=== PATIENT | male | born 1950 | race Caucasian/White ===

== ENCOUNTER 2019-02-06 10:12 | Inpatient (IN) ==
--- NOTE | 2019-02-06 10:22 | Emergency Department Note ---
Disposition Clinical Impression: Complete heart block by electrocardiogram, Elevated troponin, Elevated brain natriuretic peptide (BNP) level Disposition: Admitted As Inpatient Condition: Fair [facility]errals: [facility] [Primary Care Provider[facility] - Forms: ED Satisfaction Letter Time of Disposition: 12:43 General Adult HPI - General Stated complaint: chest pain Time Seen by Provider: 02/06/19 10:18 Source: patient, EMS Mode of arrival: EMS Limitations: no limitations Nursing Notes Reviewed: Yes Vital Signs Reviewed: Yes - History of Present Illness HPI Narrative: Patient is a 68-year-old male presenting via EMS from transferred for the [facility] for shortness of breath. Patient with history of congestive heart failure, AR in the past without intervention, schizophrenia, anxiety Per EMS, patient had presented to the [facility] with 2 months of shortness of breath, lightheaded and dizziness. Patient confirms this account. Per EMS, when they arrived they found the patient was bradycardic with a heart rate of 37 bpm and to be in complete heart block. Prior to their arrival, the patient was given sublingual nitroglycerin for reported elevated blood pressure. Per patient, he has no chest pain, continues with shortness of breath which is mainly exertional. This is not worsened over the past 24 hours. He does not wear oxygen at home. Patient does state that last night he had pain in his right shoulder blade, which she describes as a tightness. This resolved on its own, it was nonexertional, went away with rest. He has not had this today. He does take aspirin at home. He was given aspirin today at the [facility]. No recent fall, injury, abdominal pain, nausea or vomiting. Patient denies any history of complete heart block or pacemaker placement in the past. He currently follows with a upholstered goods crafter at [facility]. Last echocardiogram was approximately one year ago per patient with a moderate reduction of ejection fraction. He denies any recent overdose of calcium channel or beta marcial. He does take carvedilol. - Related Data Allergies Allergy/AdvReac Type Severity Reaction Status Date / Time lorazepam AdvReac See Verified 02/06/19 10:23 Comments All systems ED: reviewed and negative except as stated. Review of Systems: As Per HPI Constitutional: Denies: fever, chills ENT ED: Denies: congestion Cardiovascular: Reports: chest pain, dyspnea on exertion, edema. Denies: palpitations, orthopnea, syncope Respiratory: Reports: dyspnea. Denies: cough, wheezes, hemoptysis, sputum production Gastrointestinal: Denies: abdominal pain, nausea, vomiting Genitourinary: Denies: urgency Musculoskeletal: Denies: back pain Integumentary: Denies: rash Neurological: Denies: headache, weakness, numbness, confusion Endocrine: Denies: fatigue Hematological/Lymphatic: Denies: easy bleeding Past Medical History - Past Medical History Attestation: Yes The following information was validated with the patient. Source: patient Physical Exam - General Limitations: no limitations General appearance: alert, in no apparent distress - Head Head exam: atraumatic, normocephalic, normal inspection - Eye Eye exam: Present: normal appearance, PERRL, EOMI - ENT ENT exam: normal exam - Neck Neck exam: Present: normal inspection, full ROM, trachea midline - Chest Chest inspection: Present: normal inspection, symmetric chest wall rise - Respiratory Respiratory exam: Present: normal lung sounds bilaterally. Absent: respiratory distress, wheezes - Cardiovascular Cardiovascular exam: Present: normal rhythm, bradycardia - Abdominal Exam Abdominal exam: Present: soft, Non-Tender. Absent: tenderness, distention, guarding, rebound, rigidity - Extremities Exam Extremities exam: Present: normal capillary refill, pedal edema (2+ BL LE edema) - Expanded Lower Extremity Exam Neurovascular/Tendon exam: Absent: motor deficit, sensory deficit, tendon deficit - Neurological Exam Neurological exam: Present: alert, oriented X3 - Psychiatric Psychiatric exam: Present: normal affect, normal mood - Skin Skin exam: Present: warm, dry, intact, normal color. Absent: rash, diaphoresis, pallor Course - Consultations Consultation #1: I spoke with Dr. Nuñez, with interventional cardiology following EKG showed complete heart block, patient is currently stable, patient will be admitted with cardiology consult. Dr. Nuñez recommended dopamine and atropine to be at bedside, Pads remain placed. States at this time, as patient is currently stable, most likely pacemaker placement tomorrow a.m. If patient becomes unstable, requested the patient be started on dopamine at a rate of 10 mcg/kg/min or atropine 0.5mg and Dr. Nuñez to be called immediately. Time: 10:30 Consultation #2: I did discuss the findings and elevated troponin with Dr. Nuñez, he states continued admission to the ICU, with cardio consult, he does recommend a heparin drip. Time: 11:45 Vital Signs Temperature 97.6 F 02/06/19 10:19 Pulse Rate 43 02/06/19 10:19 Respiratory Rate 18 02/06/19 10:19 Blood Pressure 215/69 02/06/19 10:19 O2 Sat by Pulse Oximetry 95 02/06/19 10:19 Temperature 97.6 F 02/06/19 10:19 Pulse Rate 39 02/06/19 11:18 Respiratory Rate 20 02/06/19 11:18 Blood Pressure 189/56 02/06/19 11:18 O2 Sat by Pulse Oximetry 94 02/06/19 11:18 Oxygen Delivery Oxygen Delivery Nasal Cannula Medical Decision Making - MDM Narrative Medical decision making narrative: Patient is a 68-year-old male who was sent via EMS from the [facility] for abnormal EKG. In route patient was found to be in complete heart block, on arrival patient conversant, stable, blood pressure is 180/90 heart rate is currently 37 and showing to be in complete heart block on EKG. Immediately the pads were placed, as patient has remained stable and conversant, normotensive, patient was not performed. Patient has remained with pads placed in the event of acute change. I did speak with cardiology, Dr. Nuñez, who recommends the patient to have dopamine and atropine placed at bedside and the case of acute change, otherwise will be admitted to ICU, pacemaker will be placed tomorrow morning. Laboratory work will be performed, including CBC, BMP, PT, PTT, troponin, BNP, chest x-ray. He was started on maintenance fluids at 75 mL per hour, with history of CHF, we will continue lightly with fluids. Chest x-ray shows mild pulmonary edema without sign of pneumonia or consolidation, entry work was obtained that was performed at the [facility] which shows troponin at 0.101, BMP otherwise unremarkable, CBC within normal limits. Laboratory obtained at our hospital was performed as well, CBC, PT, PTT and BMP are all within normal limits. Troponin was elevated at 0.08. While here in the ER, patient did have 4-5 beats of nonsustained V. tach, patient remained asymptomatic. I did discuss the findings and elevated troponin with Dr. Nuñez, he states continued admission to the ICU, further recommendation is to start a heparin drip. This will be initiated. At this time dopamine and atropine are at bedside if needed. Pads are continued to be placed on the patient. Patient has remained stable. Patient is full code. ICU was paged at 1147 for admission. I spoke with Dr. Galindo at 1236, states that he admitting hospitalist will need to admit the patient at this point. I spoke with Dr. Tran at 1240, patient has been admitted and will be placed in ICU. I did discuss Dr. Nuñez's recommendations with him. - Medical Records Medical records reviewed: Yes I reviewed the patient's medical records. - Lab Data Lab results reviewed: Yes I reviewed the patient's lab results. Result diagrams: 02/06/19 10:46 02/06/19 10:46 Lab Results 02/06/19 02/06/19 02/06/19 Range/Units 10:46 10:46 10:46 WBC 7.9 (4.3-11.1) K/mcL RBC 4.49 (4.19-5.50) M/mcL Hgb 12.9 (12.9-16.9) g/dL Hct 39.8 (37.5-50.1) % MCV 88.6 (83.0-100.0) fL MCH 28.7 (28.0-33.3) pg MCHC 32.4 (31.6-35.5) g/dL RDW 14.1 (11.5-14.5) % Plt Count 156 (140-400) K/mcL MPV 11.5 (9.4-12.4) fL Immature Gran % 0.3 (0-4) % Seg Neutrophils % 62.3 % Lymphocytes % 26.2 % Monocytes % 9.0 % Eosinophils % 1.9 % Basophils % 0.3 % Neutrophils # 4.9 (1.6-8.9) K/mcL Lymphocytes # 2.1 (0.6-4.6) K/mcL Monocytes # 0.7 (0.0-1.3) K/mcL Eosinophils # 0.2 (0.0-0.6) K/mcL Basophils # 0.0 (0.0-0.2) K/mcL PT 12.3 H (9.4-12.1) Seconds INR 1.1 APTT 28.9 (26.0-36.0) Seconds Sodium 141 (136-145) mEq/L Potassium 3.6 (3.5-5.1) mEq/L Chloride 105 (98-107) mEq/L Carbon Dioxide 24 (23-29) mEq/L BUN 21 (8-23) mg/dL Creatinine 1.09 (0.70-1.30) mg/dL Est GFR ( Amer) > 60 (> 60) Est GFR (Non-Af Amer) > 60 (> 60) BUN/Creatinine Ratio 19 (6-26) Glucose 118 H (70-105) mg/dL Calculated Osmolality 296 (280-300) Calcium 9.0 (8.6-10.3) mg/dL Troponin I 0.08 H* (< 0.04) ng/mL B-Natriuretic Peptide (Less than 100) pg/mL TSH 2.889 (0.340-5.600) mcIU/mL 02/06/19 Range/Units 10:46 WBC (4.3-11.1) K/mcL RBC (4.19-5.50) M/mcL Hgb (12.9-16.9) g/dL Hct (37.5-50.1) % MCV (83.0-100.0) fL MCH (28.0-33.3) pg MCHC (31.6-35.5) g/dL RDW (11.5-14.5) % Plt Count (140-400) K/mcL MPV (9.4-12.4) fL Immature Gran % (0-4) % Seg Neutrophils % % Lymphocytes % % Monocytes % % Eosinophils % % Basophils % % Neutrophils # (1.6-8.9) K/mcL Lymphocytes # (0.6-4.6) K/mcL Monocytes # (0.0-1.3) K/mcL Eosinophils # (0.0-0.6) K/mcL Basophils # (0.0-0.2) K/mcL PT (9.4-12.1) Seconds INR APTT (26.0-36.0) Seconds Sodium (136-145) mEq/L Potassium (3.5-5.1) mEq/L Chloride (98-107) mEq/L Carbon Dioxide (23-29) mEq/L BUN (8-23) mg/dL Creatinine (0.70-1.30) mg/dL Est GFR ( Amer) (> 60) Est GFR (Non-Af Amer) (> 60) BUN/Creatinine Ratio (6-26) Glucose (70-105) mg/dL Calculated Osmolality (280-300) Calcium (8.6-10.3) mg/dL Troponin I (< 0.04) ng/mL B-Natriuretic Peptide 1017 H (Less than 100) pg/mL TSH (0.340-5.600) mcIU/mL - Radiology Data Radiology results reviewed: Yes I reviewed the patient's radiology results. Chest X-Ray 02/06/19 10:18 IMPRESSION: The combination of cardiomegaly and mild interstitial pulmonary edema is suggestive of mild CHF. D/ / 02/06/2019 10:57:55 Jose L Payne MD / [facility] [place] Interpreting Provider: Jose L Payne MD - EKG Data EKG #1 EKG attestation: Yes I reviewed and interpreted this EKG. EKG results narrative: EKG obtained at 1070 with ventricular rate of 38, shows complete AV block with w karina QRS with a left bundle, no acute ischemic changes are noted. Rhythm strip analyzed at 1128 with nonsustained V. tach noted 5 beats, with continued complete heart block
[2019-02-06] MEDS ORDERED: 0.9 % Sodium Chloride 1,000 ML IVC SCH (10:45)
--- NOTE | 2019-02-06 10:54 | Emergency Department Note ---
Disposition Clinical Impression: Complete heart block by electrocardiogram, Elevated troponin, Elevated brain natriuretic peptide (BNP) level Disposition: Admitted As Inpatient Condition: Fair Time of Disposition: 12:43 General Adult HPI - General Chief complaint: ED Chest Pain Stated complaint: chest pain Time Seen by Provider: 02/06/19 10:18 Source: patient, EMS Limitations: no limitations - History of Present Illness Pain Scale: 0 - Related Data Home Medications Medication Instructions Recorded Confirmed Aspirin [Lo-Dose Aspirin EC] 81 mg PO DAILY 02/06/19 02/06/19 Ibuprofen [Ibu] 600 mg PO Q6H PRN 02/06/19 02/06/19 Lisinopril [Zestril] 20 mg PO DAILY 02/06/19 02/06/19 Allergies Allergy/AdvReac Type Severity Reaction Status Date / Time lorazepam AdvReac See Verified 02/06/19 10:23 Comments Past Medical History - Past Medical History Medical history: Reports: CHF, COPD, hyperlipidemia, hypertension Psychiatric history: Reports: schizophrenia - Social History Smoking Status: Never smoker Smokeless Tobacco Status: No Alcohol use: Reports: none Drug use: Reports: none Physical Exam - General Limitations: no limitations General appearance: alert Course Vital Signs Temperature 97.6 F 02/06/19 10:19 Pulse Rate 43 02/06/19 10:19 Respiratory Rate 18 02/06/19 10:19 Blood Pressure 215/69 02/06/19 10:19 O2 Sat by Pulse Oximetry 95 02/06/19 10:19 Temperature 97.9 F 02/06/19 21:03 Pulse Rate 70 02/06/19 22:00 Respiratory Rate 20 02/06/19 22:00 Blood Pressure 163/64 02/06/19 22:00 O2 Sat by Pulse Oximetry 93 02/06/19 22:00 Oxygen Delivery Oxygen Delivery Room Air Medical Decision Making - Lab Data Result diagrams: 02/06/19 10:46 02/06/19 10:46 Lab Results 02/06/19 02/06/19 02/06/19 Range/Units 10:46 10:46 10:46 WBC 7.9 (4.3-11.1) K/mcL RBC 4.49 (4.19-5.50) M/mcL Hgb 12.9 (12.9-16.9) g/dL Hct 39.8 (37.5-50.1) % MCV 88.6 (83.0-100.0) fL MCH 28.7 (28.0-33.3) pg MCHC 32.4 (31.6-35.5) g/dL RDW 14.1 (11.5-14.5) % Plt Count 156 (140-400) K/mcL MPV 11.5 (9.4-12.4) fL Immature Gran % 0.3 (0-4) % Seg Neutrophils % 62.3 % Lymphocytes % 26.2 % Monocytes % 9.0 % Eosinophils % 1.9 % Basophils % 0.3 % Neutrophils # 4.9 (1.6-8.9) K/mcL Lymphocytes # 2.1 (0.6-4.6) K/mcL Monocytes # 0.7 (0.0-1.3) K/mcL Eosinophils # 0.2 (0.0-0.6) K/mcL Basophils # 0.0 (0.0-0.2) K/mcL PT 12.3 H (9.4-12.1) Seconds INR 1.1 APTT 28.9 (26.0-36.0) Seconds Heparin Anti-Xa, Unfract (0.30-0.70) IU/mL Sodium 141 (136-145) mEq/L Potassium 3.6 (3.5-5.1) mEq/L Chloride 105 (98-107) mEq/L Carbon Dioxide 24 (23-29) mEq/L BUN 21 (8-23) mg/dL Creatinine 1.09 (0.70-1.30) mg/dL Est GFR ( Amer) > 60 (> 60) Est GFR (Non-Af Amer) > 60 (> 60) BUN/Creatinine Ratio 19 (6-26) Glucose 118 H (70-105) mg/dL Calculated Osmolality 296 (280-300) Calcium 9.0 (8.6-10.3) mg/dL Troponin I 0.08 H* (< 0.04) ng/mL B-Natriuretic Peptide (Less than 100) pg/mL TSH 2.889 (0.340-5.600) mcIU/mL 02/06/19 02/06/19 Range/Units 10:46 12:25 WBC (4.3-11.1) K/mcL RBC (4.19-5.50) M/mcL Hgb (12.9-16.9) g/dL Hct (37.5-50.1) % MCV (83.0-100.0) fL MCH (28.0-33.3) pg MCHC (31.6-35.5) g/dL RDW (11.5-14.5) % Plt Count (140-400) K/mcL MPV (9.4-12.4) fL Immature Gran % (0-4) % Seg Neutrophils % % Lymphocytes % % Monocytes % % Eosinophils % % Basophils % % Neutrophils # (1.6-8.9) K/mcL Lymphocytes # (0.6-4.6) K/mcL Monocytes # (0.0-1.3) K/mcL Eosinophils # (0.0-0.6) K/mcL Basophils # (0.0-0.2) K/mcL PT 11.7 (9.4-12.1) Seconds INR 1.0 APTT (26.0-36.0) Seconds Heparin Anti-Xa, Unfract 0.01 L (0.30-0.70) IU/mL Sodium (136-145) mEq/L Potassium (3.5-5.1) mEq/L Chloride (98-107) mEq/L Carbon Dioxide (23-29) mEq/L BUN (8-23) mg/dL Creatinine (0.70-1.30) mg/dL Est GFR ( Amer) (> 60) Est GFR (Non-Af Amer) (> 60) BUN/Creatinine Ratio (6-26) Glucose (70-105) mg/dL Calculated Osmolality (280-300) Calcium (8.6-10.3) mg/dL Troponin I (< 0.04) ng/mL B-Natriuretic Peptide 1017 H (Less than 100) pg/mL TSH (0.340-5.600) mcIU/mL Attestation Statement - Attestation Attestation: I examined this patient and my medical decision-making was reviewed with the Resident Physician. I agree with the documented findings, disposition and treatment plan as described except to the extent set forth below. Patient is 68-year-old gentleman who presents to the emergency department with chief complaint of bradycardia. Patient was seen at the [place] and transferred to our facility after he was found to be bradycardic with a heart rate in the 30s. The patient was found to have an EKG consistent with a third-degree heart block and the patient was transferred to our facility for further definitive care Physical exam patient is awake alert and in no acute distress patient is bradycardic but is asymptomatic with bradycardia Medical decision management case was discussed with cardiology who recommended having atropine and dopamine at bedside if the patient were to become unstable. The patient will be admitted to the hospitalist service electro lites will be checked on the patient and currently the patient is hemodynamically stable. If he were to become unstable the patient will be started on transcutaneous pacing as a bridge to transvenous pacing I personally supervised and was present for the mcelroy/critical portions of the following procedures completed by the resident:EKG.
[2019-02-06 10:55] LABS: Basophils % 0.3 %; Eosinophils # 0.2 K/mcL (0.0-0.6); Eosinophils % 1.9 %; Hematocrit 39.8 % (37.5-50.1); Hemoglobin 12.9 g/dL (12.9-16.9); Immature Granulocytes % 0.3 % (0-4); Lymphocytes # 2.1 K/mcL (0.6-4.6); Lymphocytes % 26.2 %; Mean Corpuscular HGB Conc 32.4 g/dL (31.6-35.5); Mean Corpuscular Hemoglobin 28.7 pg (28.0-33.3); Mean Corpuscular Volume 88.6 fL (83.0-100.0); Mean Platelet Volume 11.5 fL (9.4-12.4); Monocytes # 0.7 K/mcL (0.0-1.3); Neutrophils # 4.9 K/mcL (1.6-8.9); Platelet Count 156 K/mcL (140-400); Red Blood Count 4.49 M/mcL (4.19-5.50); Red Cell Distribution Width 14.1 % (11.5-14.5); Segmented Neutrophils % 62.3 %; White Blood Count 7.9 K/mcL (4.3-11.1)
[2019-02-06 11:02] LABS: INR 1.1; Prothrombin Time 12.3 Seconds (9.4-12.1)
[2019-02-06 11:05] LABS: Activated Partial Thrombo Time 28.9 Seconds (26.0-36.0)
[2019-02-06 11:17] LABS: BUN/Creatinine Ratio 19 (6-26); Blood Urea Nitrogen 21 mg/dL (8-23); Carbon Dioxide 24 mEq/L (23-29); Chloride 105 mEq/L (98-107); Glucose 118 mg/dL (70-105); Osmolality,Calculated 296 (280-300); Potassium 3.6 mEq/L (3.5-5.1); Sodium 141 mEq/L (136-145); eGFR For African Americans > 60 (> 60); eGFR For Non-African Americans > 60 (> 60)
[2019-02-06 11:19] LABS: Troponin I 0.08 ng/mL (< 0.04)
[2019-02-06] MEDS ORDERED: *HR* Atropine Sulfate 1 MG/10 ML SYRINGE IVP ONE (11:19)
[2019-02-06 11:31] LABS: Thyroid Stimulating Hormone 2.889 mcIU/mL (0.340-5.600)
[2019-02-06] MEDS ORDERED: *HR* Heparin 5,000 UNIT/ML VIAL IVP ONE (11:46)
[2019-02-06] MEDS ORDERED: *HR* Heparin 5,000 UNIT/ML VIAL IVP PRN ×2 (11:46)
[2019-02-06] MEDS ORDERED: Heparin 25,000 UNIT/250 ML D5W 25,000 UNIT/250 ML IV.SOLN IVC SCH (12:00)
[2019-02-06 13:04] LABS: Heparin anti-factor XA UFH 0.01 IU/mL (0.30-0.70); Prothrombin Time 11.7 Seconds (9.4-12.1)
--- NOTE | 2019-02-06 13:20 | Internal Med History&Physical ---
Date of Encounter: 02/06/19 Time of Encounter: 12:00 Internal Medicine - H&P: HPI History of present illness: Mr. Gunter is a 68 year old male who presented from [place] urgent care for shortness of breath and cardiac workup. He has a history of HFrEF, [place] two years ago, schizophrenia, and hypertension. He is poorly compliant with medications. He started having onset of shortness of breath for two months with lightheadedness that has progressed to shortness of breath. In the last few days, dyspnea has worsened and last night he experienced an episode of sharp chest pain. He again had the same issues today and so came in. He is prescribed several medications through the [place] but he only takes lisinopril, and sometimes takes aspirin. He is prescribed Coreg but he does not take it. He admits to worsening lower extremity edema and orthopnea. Admits to diaphoresis. He denies fevers/chills, n/v, diarrhea, palpitations. Patient was transferred here from [place] urgent care for further workup after some EKG changes. EMS arrived and found patient was bradycardi with HR 37 bpm and EKG showing complete heart block. Patient took two doses of sublingual nitro and chest pain improved. On arrival to [facility] ED, patient telemetry and EKG confirms complete heart block. Troponin was elevated at 0.08, with BNP 1,017. A chest x-ray was showing mild interstitial edema. Patient is conversationally dyspneic. Past Med Surg Social Fam HX - Past Medical History Medical history: CHF, COPD, hyperlipidemia, hypertension Psychiatric history: schizophrenia - Social History Smoking Status: Never smoker Smokeless Tobacco Status: No Alcohol use: none Drug use: none Internal Medicine - H&P: Meds Aspirin [Lo-Dose Aspirin EC] 81 mg PO DAILY 02/06/19 [History] Ibuprofen [Ibu] 600 mg PO Q6H PRN 02/06/19 [History] Lisinopril [Zestril] 20 mg PO DAILY 02/06/19 [History] Allergy/AdvReac Type Severity Reaction Status Date / Time lorazepam AdvReac See Verified 02/06/19 10:23 Comments All Systems PM: A 10-system review of systems was performed and is negative for pertinent findings except as documented above in the HPI. - Constitutional Constitutional: no chills, no fever(s), no night sweats - EENT Eyes: no change in vision, no discharge, no pain, no photophobia Ears: no ear discharge, no ear pain, no tinnitus Nose, mouth and throat: no dysphagia, no nasal discharge, no neck pain, no sore throat - Cardiovascular Cardiovascular ROS IM: chest pain, dyspnea, lightheadedness, no diaphoresis, no palpitations, no syncope - Respiratory Respiratory: dyspnea, no cough, no wheezing, no excessive phlegm production - Gastrointestinal Gastrointestinal: no abdominal pain, no diarrhea, no hematemesis, no hematochezia, no melena, no nausea, no vomiting - Musculoskeletal Musculoskeletal ROS IM: no numbness, no tingling - Integumentary Integumentary IM: no rash, no unusual bruising - Neurological Neurological ROS: no confusion, no convulsions, no focal weakness, no numbness, no tingling, no tremor(s) - Hematologic/Lymphatic Hematologic/Lymphatic: no easy bruising - Constitutional Vitals: Temp Pulse Resp BP Pulse Ox 97.6 F 39 20 189/56 94 02/06/19 10:19 02/06/19 11:18 02/06/19 11:18 02/06/19 11:18 02/06/19 11:18 General appearance: Present: mild distress, A&O X 3, obese Exam: conversationally dyspneic, - Head Head exam: Present: atraumatic, normocephalic - Eye Eye exam: Present: PERRL, conjuntiva pink, sclera anicteric Pupils: Present: PERRL - Neck Neck exam general surgery: Present: supple, trachea midline. Absent: lymphadenopathy - Respiratory Respiratory exam: Present: decreased breath sounds. Absent: accessory muscle use, rales, rhonchi, wheezes Additional comments: Breath sounds difficult to appreciate due to patient body habitus. - Cardiovascular Cardiovascular exam: Present: bradycardia, +S1, +S2. Absent: diastolic murmur, gallop, rubs, systolic murmur - GI/Abdominal GI/Abdominal exam: Present: normal bowel sounds, soft, no peritoneal signs. Absent: distended, tenderness - Extremities Exam Extremities exam: Present: pedal edema (bilateral, pitting), warm, radial pulses palpable and symmetrical. Absent: calf tenderness, cyanotic - Neurological Exam Neurological exam: Present: CN II-XII intact, oriented X3, no focal deficits. Absent: pronater drift, facial droop, speech deficit - Skin Skin exam: Present: dry, intact Internal Med - H&P Results - Labs CBC & Chem 7: 02/06/19 10:46 02/06/19 10:46 Labs: Short CBC 02/06/19 Range/Units 10:46 WBC 7.9 (4.3-11.1) K/mcL Hgb 12.9 (12.9-16.9) g/dL Hct 39.8 (37.5-50.1) % Plt Count 156 (140-400) K/mcL Neutrophils # 4.9 (1.6-8.9) K/mcL BMP 02/06/19 10:46 Sodium 141 Potassium 3.6 Chloride 105 Carbon Dioxide 24 BUN 21 Creatinine 1.09 Glucose 118 H Calcium 9.0 Cardiac Enzymes 02/06/19 Range/Units 10:46 Troponin I 0.08 H* (< 0.04) ng/mL - Impressions ITS Impressions Chest X-Ray 02/06/19 10:18 IMPRESSION: The combination of cardiomegaly and mild interstitial pulmonary edema is suggestive of mild CHF. D/ / 02/06/2019 10:57:55 Jose L Payne MD / [facility] Interpreting Provider: Jose L Payne MD - Assessment and Plan (1) Complete heart block by electrocardiogram Current Visit: Yes Status: Acute Assessment and plan: Cardiology was notified in ED and will be managing patient heart block. Per ED sign out, if patient becomes unstable, plan is for dopamine drip or atropine. (2) Elevated troponin Current Visit: Yes Status: Acute Assessment and plan: Troponin at [place] urgent care was 0.1, here is 0.08, shows a slight improvement. Currently on heparin drip. Cycle troponin, echocardiogram, Cardiology consultation. (3) Congestive heart failure Current Visit: Yes Status: Acute Assessment and plan: Reviewing [place] records, patient has history of systolic heart failure. He is supposed to be on Coreg and lisinopril. He only takes lisinopril but not regu larly. He is currently fluid overloaded on exam. DC IV fluids and give dose of IV Lasix 40 mg. Fluid restrict, monitor I/Os. Qualifiers: Heart failure type: systolic Heart failure chronicity: acute on chronic Qualified Code(s): I50.23 - Acute on chronic systolic (congestive) heart failure (4) Schizophrenia Current Visit: Yes Status: Acute Assessment and plan: No home medications for schizophrenia listed currently. Qualifiers: Schizophrenia type: unspecified Qualified Code(s): F20.9 - Schizophrenia, unspecified (5) Hypertension Current Visit: Yes Status: Acute Assessment and plan: Non-compliant with home medications. Resume lisinopril PO. Will be cautious to not abruptly drop BP as he likely has chronic elevated BP. IV Hydralazine prn. Qualifiers: Hypertension type: essential hypertension Qualified Code(s): I10 - Essential (primary) hypertension (6) DVT prophylaxis Current Visit: Yes Status: Acute Assessment and plan: on heparin drip - Time Spent With Patient Total time spent is greater than 50% in coordination of care (as documented) at patient's floor/unit and/or counseling patient:
--- NOTE | 2019-02-06 14:14 | Cardiology Consult Note ---
Date of Encounter: 02/06/19 Time of Encounter: 14:10 Assessment and Plan (1) Complete heart block by electrocardiogram Current Visit: Yes Status: Acute Per Cardiology: Second-degree type II heart block noted on portable telemetry box on patient prior to transport to ICU from ER. Attempting to locate ECG. Clinically stable, mentating. At first evaluation patient was anxious and short of breath, however was fidgeting through his home clothing and not wearing oxygen. Clinically improved once calmed down and re-established oxygen. Patches on. Not requiring dopamine drip at this time. Will check echo. Medications reviewed with pharmacy, does not appear to be on any medications to contribute to heart block-- supposed to be taking Coreg 6.25 mg by mouth twice a day, however has not been filled in quite some time. He confirmed not taking.. We will consider EP consult tomorrow to evaluate potential need for permanent pacemaker if clinically appropriate. TSH and electrolytes stable. Discussed and reviewed with Dr. Tobin. (2) Congestive heart failure Current Visit: Yes Status: Acute Per Cardiology: Possible history of cardiomyopathy-- no previous cardiac testing records noted at [facility]. Denies previous stenting or bypass surgery. Reports evaluated at one time for ICD, but apparently was told only needs medications. Supposed be taking Coreg 6.25 mg by mouth twice a day per pharmacy, however not an active filled prescription recently. On ACEI. Recommend diuresis. Consider nebulizer as well. Strict I&O, daily weights, fluid restriction. Qualifiers: Heart failure type: systolic Heart failure chronicity: acute on chronic Qualified Code(s): I50.23 - Acute on chronic systolic (congestive) heart failure (3) Elevated troponin Current Visit: Yes Status: Acute Per Cardiology: Currently chest pain-free. Troponin noted to be 0.08 in setting of heart block and CHF. Cycle troponins. Check echo. Suspect type II demand ischemia, no cardiac rehabilitation warranted at this time. Discussion w patient/family: The assessment and plan as outlined above was discussed with the patient and/or family members who expressed understanding and agreement. All questions were answered. Thank you for involving us in the care of your patient. Please call with any questions. History of Present Illness Consult date: 02/06/19 Consult reason: Heart Block Chief complaint: SOB History of present illness: Mr. Gunter is a 68 year old male with a relevant past mental history of HTN, HLD, COPD, possible cardiomyopathy, schizophrenia. Cardiology consult for concerns of complete heart block. Past Med Surg Social Fam HX - Past Medical History Attestation: Yes The following information was validated with the patient. Source: patient, old records reviewed, obtained from family Medical history: CHF, COPD, hyperlipidemia, hypertension Psychiatric history: schizophrenia - Social History Smoking Status: Never smoker Smokeless Tobacco Status: No Alcohol use: none Drug use: none Medications and Allergies Aspirin [Lo-Dose Aspirin EC] 81 mg PO DAILY 02/06/19 [History] Ibuprofen [Ibu] 600 mg PO Q6H PRN 02/06/19 [History] Lisinopril [Zestril] 20 mg PO DAILY 02/06/19 [History] Allergy/AdvReac Type Severity Reaction Status Date / Time lorazepam AdvReac See Verified 02/06/19 10:23 Comments All Systems Review: The remainder of the systems were reviewed and are negative - Cardiovascular Cardiovascular: as per HPI, chest pain at rest, dyspnea at rest, dyspnea on exertion Physical Examination Vital Signs, Last 4 Hours Temp Pulse Resp BP Pulse Ox 02/06/19 13:52 36 18 178/62 96 02/06/19 11:18 39 20 189/56 94 02/06/19 10:19 97.6 F 43 18 215/69 95 General: Conversant HEENT: Atraumatic, Normocephaly, Mucus Membranes Moist Neck: No JVD, Normal carotid pulses Cardiac: Reg Rate and Rhythm, Normal S1 and S2, No Murmur Lungs: Normal Breath Sounds, Other (resp moderately labored, scattered rhonchi, improved with redirection and applying O2) Neuro: Alert and responsive, No focal deficits noted, Other (anxious, fidgety) Abdomen: Soft, Non-Tender, Other (obese) Skin: No rashes noted on visualized skin Musculoskeletal: No Chest Wall Tenderness Extremities: No Clubbing, No Cyanosis, No Edema, Normal Pulses Results 02/06/19 10:46 02/06/19 10:46 Lab Results Laboratory Tests 02/06/19 02/06/19 02/06/19 10:46 10:46 10:46 WBC 7.9 Hgb 12.9 Hct 39.8 INR 1.1 Creatinine 1.09 Est GFR (Non-Af Amer) > 60 Troponin I 0.08 H* B-Natriuretic Peptide TSH 2.889 02/06/19 10:46 WBC Hgb Hct INR Creatinine Est GFR (Non-Af Amer) Troponin I B-Natriuretic Peptide 1017 H TSH ITS Impressions Chest X-Ray 02/06/19 10:18 IMPRESSION: The combination of cardiomegaly and mild interstitial pulmonary edema is suggestive of mild CHF. D/ / 02/06/2019 10:57:55 Jose L Payne MD / katy Interpreting Provider: Jose L Payne MD Active Medications Aspirin (Aspirin Ec) 81 mg PO DAILY LUIZ Stop: 08/09/19 09:01 Heparin Sodium (Porcine) (Heparin) 4,000 unit IVP Q6HR PRN PRN Reason: SEE COMMENTS Stop: 08/08/19 11:47 Heparin Sodium (Porcine) (Heparin) 2,000 unit IVP Q6H PRN PRN Reason: SEE COMMENTS Stop: 08/08/19 11:47 Dopamine HCl/Dextrose (Dopamine Premix 400mg/250ml) 400 mg in 250 mls @ 45.858 mls/hr IVC .Q5H28M LUIZ; Protocol Stop: 08/08/19 11:01 Heparin Sodium/Dextrose (Heparin 25,000 Unit/250 Ml D5w) 25,000 unit in 250 mls @ 10.089 mls/hr IVC .Q24H LUIZ; Protocol Stop: 08/08/19 12:01 Last Admin: 02/06/19 12:28 Dose: 8.25 unit/kg/hr, 10.1 mls/hr Documented by: Lisinopril (Zestril) 20 mg PO DAILY LUIZ; Protocol Stop: 08/09/19 09:01 - Imaging and Cardiology Echo: pending - EKG Interpretation EKG results cardiology: other (2nd type 2 heart block noted on portable monitor) Consult Discharge Plan - Plan [facility]Primary Care Provider[facility] -
[2019-02-06] MEDS ORDERED: Furosemide 40 MG/4 ML VIAL IVP STA (14:18)
[2019-02-06] MEDS ORDERED: 0.9 % Sodium Chloride 1,000 ML ONE ×2 (14:44→15:13)
[2019-02-06] MEDS ORDERED: ISOVUE-370 200 ML INFUS..BTL ONE (14:45)
[2019-02-06] MEDS ORDERED: Heparin 1,000 UNITS/500 mL 500 ML ONE (14:45)
[2019-02-06] MEDS ORDERED: *HR* Heparin 10,000 UNIT/10 ML VIAL ONE (14:45)
[2019-02-06] MEDS ORDERED: Nitroglycerin 1,000 MCG/10 ML VIAL IV ONE (14:45)
[2019-02-06] MEDS ORDERED: Nitroglycerin 0.4 MG TAB.SUBL SL PRN (14:53)
[2019-02-06] MEDS ORDERED: *HR* FentaNYL (PF) 100 MCG/2 ML VIAL ONE (15:13)
[2019-02-06] MEDS ORDERED: *HR* Midazolam HCl 2 MG/2 ML VIAL ONE (15:13)
--- NOTE | 2019-02-06 15:24 | Pre-Sedation Evaluation ---
Pre-sedation evaluation - Pre-sedation checklist Date of procedure: 02/06/19 Procedure: [facility] Recent Vitals: Last Vital Signs Temp 97.8 F 02/06/19 14:29 Pulse 40 02/06/19 14:29 Resp 22 02/06/19 14:29 BP 178/62 02/06/19 14:29 Pulse Ox 100 02/06/19 14:29 H&P (including ROS) documented in medical record: Yes Previous reaction to sedatives/anesthetics: No Dietary Status: NPO after Midnight Airway Assessment: Patient can open mouth completely, TMJ function normal ASA Classification *see protocol: CLASS II-Mild systemic disease Plan of Care: Pt appropriate candidate for procedure/moderate/conscious sedation, Risks/benefits of procedure/sedation discussed w/ patient/family Cardiac Registry (Cardio Only) - Functional Capacity Functional Capacity: >=4 METS with symptoms - Clincal Frailty Scale Clinical Frailty Scale: Vulnerable
--- NOTE | 2019-02-06 16:12 | Invasive Diagnostic Lab Proc ---
Name: Santos Gunter Date of Study: 02/06/2019 Date: 1950 Ht: 66.1in Medical Record#: [id number] Age: 68 Wt: 268.96lb Gender: Male BSA: 2.27 Order #: [id number] BMI: 43.23 Physicians Procedure Physician: Miguel Nuñez MD, [facility] Referring MD: Referring MD: Staff Name Position Time In Brayan Tapia RN Monitor 03:15 PM Ginger Alcantar RN Communications Agent 03:15 PM Vielka Marcano RT (R) Scrub 03:15 PM Jolie Mcgill RT (R) Scrub 03:15 PM Indications Indication Cardiac Arrhythmia Procedures Performed Procedure L HRT ARTERY/VENTRICLE ANGIO INS/RPL TEMP PM LEAD/CATH;SNGL Pre-Procedure Checklist Informed consent is complete signed and on chart. H&P is on chart. ID band is on and ID verified with patient. Patient NPO for procedure The procedure was described for the patient and questions were answered. ECG is on chart. Plan of Care Patient will tolerate the procedure without complications. Adequate level of comfort will be maintained. Hemodynamics will remain stable Patient will recover from procedure without complications. Respiratory function will be maintained. Cardiac rhythm will remain stable. Patient temperature will be maintained. Patient and/or family have verbalized understanding of the procedure. Patient Education Allergies lorazepam Vital Signs Time BP (mmHg) HR (bpm) O2 Sat. RR (bpm) LOC 03:26 PM / % 5 = Fully awake and oriented or at pre-proc level 03:26 PM / % 4 = Oriented but drowsy 03:41 PM / % 4 = Oriented but drowsy 03:17 PM 162 / 112 42 98 % 23 03:30 PM 224 / 85 38 94 % 27 03:35 PM 211 / 97 44 93 % 23 03:40 PM 193 / 95 70 95 % 27 03:45 PM 184 / 93 105 95 % 25 03:50 PM 178 / 92 70 94 % 29 03:55 PM 197 / 97 70 96 % 28 Procedural Medications Time Medication Dose Units Method Given By 03:25 PM Oxygen 2 L/min nasal cannula Ginger Alcantar RN 03:26 PM Versed 2 mg Intravenous Ginger Alcantar RN 03:26 PM Fentanyl 50 mcg Intravenous Ginger Alcantar RN 03:34 PM Lidocaine 2% 20 ml Subcutaneous Miguel Nuñez MD, [facility] 03:41 PM Hydralazine 10 mg Intravenous Ginger Alcantar RN 03:46 PM Nitroglycerin 200 mcg Intracoronary Miguel Nuñez MD 03:47 PM Nitroglycerin 200 mcg Intracoronary Miguel Nuñez MD ASA Classification: CLASS II- Mild systemic disease (i.e. well-controlled diabetes, hypertension, asthma, cigarette smoking) Vicente Score Preprocedure Postprocedure Activity 2- Moves 4 extremities sustained head lift Activity 2- Moves 4 extremities sustained head lift Circulation 2- SBP +/= 20 points of pre-anesthetic level Circulation 2- SBP +/= 20 points of pre-anesthetic level Consciousness 2- Awake and alert oriented x 3 Consciousness 2- Awake and alert oriented x 3 O2 Saturation 2- Able to maintain O2 satruation of 92% on room air O2 Saturation 2- Able to maintain O2 satruation of 92% on room air Respiratory 2- Able to deep breathe and cough well Respiratory 2- Able to deep breathe and cough well Total Score 10 Total Score 10 Contrast Agent: Isovue Diagnostic Contrast: 79 ml Total Contrast: 79 ml Fluoro Dose: 45 mGy Activated Clotting Time Time Seconds to Clot 03:58 PM 187 Procedure Log Time Note Enter By 03:14 PM Vitals capture started with the following parameters, Patient=Adult, Interval=5 min, Initial Zvilifve=694 mmHg, Deflation Rate=3 mmHg, Cuff placed on Right Arm 03:14 PM CathStat 03:14 PM Recorded ECG: HR=37 Condition=Condition 1 03:15 PM 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 cedwards 03:15 PM Hair removed from procedure site in procedure lab using clippers. Bilateral groin prepped with Chloraprep by Brayan Tapia RN, then patient was draped. Skin intact. cedwards 03:15 PM Brayan Tapia RN Position: Monitor Time in: 15:15 cedwards 03:15 PM Ginger Alcantar RN Position: Communications Agent Time in: 15:15 cedwards 03:15 PM Vielka Marcano RT (R) Position: Scrub Time in: 15:15 cedwards 03:15 PM Jolie Mcgill RT (R) Position: Scrub Time in: 15:15 cedwards 03:16 PM Vitals capture started with the following parameters, Patient=Adult, Interval=5 min, Initial Cyrrevos=629 mmHg, Deflation Rate=3 mmHg, Cuff placed on Right Arm 03:17 PM HR=42 bpm, CMTE=408/112 mmhg, SpO2=98.0 %, Resp=23 B/min 03:17 PM Physician arrived 15:17 cedwards 03:17 PM ASA Class CLASS II- Mild systemic disease (i.e. well-controlled diabetes, hypertension, asthma, cigarette smoking) cedwards 03:17 PM Meet and bibiana completed cedwards 03:18 PM Sign in performed according to hospital policy. Informed consent was obtained. cedwards 03:18 PM 16 Lao seymour attempted, unable to be placed by Ginger Alcantar RN. cedwards 03:18 PM Recorded ECG: HR=46 Condition=Condition 1 03:24 PM Vitals capture stopped. 03:24 PM Vitals capture started with the following parameters, Patient=Adult, Interval=5 min, Initial Hwmymnlk=558 mmHg, Deflation Rate=3 mmHg, Cuff placed on Right Arm 03:25 PM Procedure start 15:25 cedwards 03: PM Time: 15:25 Oxygen on at 2 L/min per nasal cannula by Ginger Alcantar RN ced: PM Time: 15:26 Patient comfortable and pain free: Yes cedwards : PM Time: 15:26LOC: 5 = Fully awake and oriented or at pre-proc level cedwards : PM Time: 15:26 Versed 2 mg Intravenous Given by Ginger Alcantar RN cedwards PM Time: 15:26 Fentanyl 50 mcg Intravenous Given by Ginger Alcantar RN cedwards 03: PM Vitals capture stopped. 03:28 PM Clinical Presentation: Non-STEMI cedwards 03:29 PM Vitals capture started with the following parameters, Patient=Adult, Interval=5 min, Initial Awyshics=102 mmHg, Deflation Rate=3 mmHg, Cuff placed on Right Arm 03:30 PM HR=38 bpm, QDWI=840/85 mmhg, SpO2=94.0 %, Resp=27 B/min 03:31 PM Recorded ECG: HR=47 Condition=Condition 1 03:33 PM Time out was performed according to hospital policy. Conscious sedation and anesthesia was achieved (see medication log with in this report above) cedwards 03:34 PM Time: 15:34 20 ml Lidocaine 2% to right groin Subcutaneous Given by Miguel Nuñez MD, [facility] cedwards 03:35 PM HR=44 bpm, KJZH=311/97 mmhg, SpO2=93.0 %, Resp=23 B/min 03:35 PM Venous access obtained by percutaneous puncture. 6Fr 10cm [place] sheath placed in right Femoral vein. [id number] cedwards 03:36 PM PstProc:Bard Bipolar Pacing Catheter Temp pacer inserted into right femoral vein cedwards 03:37 PM PstProc: Temp pacer on. cedwards 03:39 PM PstProc: Temp pacer turned on, rate 70 ppm, mA 4 cedwards 03:40 PM PstProc: Pacer is inserted at 72 cm cedwards 03:40 PM HR=70 bpm, KYMK=106/95 mmhg, SpO2=95.0 %, Resp=27 B/min 03:41 PM Time: 15:41 Hydralazine 10 mg Intravenous Given by Ginger Alcantar RN cedwards 03:41 PM Time: 15:26 Patient comfortable and pain free: Yes cedwards 03:41 PM Time: 15:26LOC: 4 = Oriented but drowsy cedwards 03:42 PM Access obtained by percutaneous puncture. 5Fr 10cm [place] sheath placed in right Femoral artery. [id number] cedwards 03:42 PM 0.035 145cm Navilyst 3mmJ wire [id number] cedwards 03:43 PM 5Fr FL 4 catheter inserted over the wire [facility] cedwards 03:43 PM Recorded Pressure: Ao, HR=71, Condition=Condition 1 (Aorta) Ao 166/97/127 03:44 PM LCA angiography performed in multiple views. cedwards 03:44 PM Catheter removed cedwards 03:45 PM 5Fr FR 4 catheter inserted over the wire [facility] cedwards 03:45 PM XT=769 bpm, QJXJ=992/93 mmhg, SpO2=95.0 %, Resp=25 B/min 03:46 PM Recorded Pressure: LV, HR=70, Condition=Condition 1 (Left Ventricle) LV 200/18/30 03:46 PM Catheter crossed the aortic valve and was selectively placed in the left ventricle. Pressures recorded on pullback for left heart catheterization. cedwards 03:46 PM Bolus angiogram of left Ventricle complete: 10 ml/sec for a total of 30 mls cedwards 03:46 PM Recorded Pressure: LV, HR=70, Condition=Condition 1 (Left Ventricle) LV 167/5/21 03:47 PM Recorded Pressure: LV, Ao, HR=83, Condition=Condition 1 (Left Ventricle) LV 170/15/31, (Aorta) Ao 167/80/113 03:47 PM Time: 15:46 Nitroglycerin 200 mcg Intracoronary Given by Miguel Nuñez MD cedwards 03:47 PM Time: 15:47 Nitroglycerin 200 mcg Intracoronary Given by Miguel Nuñez MD cedwards 03:48 PM RCA angiography performed in multiple views. cedwards 03:48 PM Recorded Pressure: Ao, HR=70, Condition=Condition 1 (Aorta) Ao 138/87/111 03:48 PM Coronary Dominance: right cedwards 03:48 PM Catheter removed cedwards 03:49 PM 5Fr FL3.5 catheter inserted over the wire [id number] cedwards 03:50 PM LCA angiography performed in multiple views. cedwards 03:50 PM HR=70 bpm, CCZL=121/92 mmhg, SpO2=94.0 %, Resp=29 B/min 03:51 PM Recorded Pressure: Ao, HR=70, Condition=Condition 1 (Aorta) Ao 150/83/110 03:53 PM Catheter removed cedwards 03:54 PM Femoral angio performed cedwards 03:55 PM Procedure completed at 15:55 02/06/2019 cedwards 03:55 PM Did you address ARMINDA flow and Dominance? YesCoronary Dominance: right cedwards 03:55 PM HR=70 bpm, GNPA=756/97 mmhg, SpO2=96.0 %, Resp=28 B/min 03:56 PM Sign out completed: Radiation Dose 290.06 mGy, 44.9 Gy/cm2 Fluoro Time: 4.4 Isovue 370 - 200ml contrast 78.6 ml given by Miguel Nuñez MD, [facility]. Complications: None. 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 Sedation minutes 30. Cardiac Rehab Consult needed: No. Confirmed administered medications: Yes cedwards 03:56 PM Isovue 370 - 200ml,1 Bottle(s) used. cedwards 03:56 PM Sheath left in place to be pulled on floor/holding areaV+Pad cedwards 03:56 PM Time: 15:41 Patient comfortable and pain free: Yes cedwards 03:56 PM Time: 15:41LOC: 4 = Oriented but drowsy cedwards 03:56 PM Estimated Blood Loss: minimal cedwards 03:57 PM Post ECG Paced cedwards 03:57 PM Post Blood Pressure 197/97 cedwards 03:57 PM Information taught Cardiac Cath cedwards 03:57 PM Education needs Procedure, Plan of Care, and Disease Process cedwards 03:57 PM Learning barriers :None cedwards 03:57 PM Education Methods Verbal cedwards 03:57 PM Education evaluation Able to repeat information cedwards 03:58 PM Site status No bleeding/ No Hematoma - Rt Groin as reported by Vielka Marcano RT (R) at 15:57 cedwards 03:58 PM Plavix, Effient or Brilinta given No cedwards 03:58 PM No family available at this time. cedwards 03:58 PM At 15:58 the ACT was 187 seconds. cedwards 04:05 PM Patient urinated 200 cc clear yellow. cedwards 04:05 PM Report given to Blanca HULL Pt taken to ICU Room #6. 16:05 cedwards 04:05 PM Patient out of room: 16:05 cedwards Complications Complication None Hemodynamics Pressures Site Systolic/A Wave Diastolic/V Wave Mean AO 166 97 127 LV 200 18 30 LV 167 5 21 LV 170 15 31 AO 167 80 113 AO 138 87 111 AO 150 83 110 Post Procedure Information Blood Pressure: 197/97 mmHg Rhythm: Paced Post procedural instructions were given Site Checks Time Location Status Staff Sheath In? Note 03:57 PM Rt Groin No bleeding/ No Hematoma Vielka Marcano RT (R) Pulses Updated by Brayan Tapia RN on 02/06/2019 4:06:42 PM electronically signed on 02/06/2019 4:07:21 PM with status of Final
[2019-02-06] MEDS: Nitroglycerin 25 MG/250 ML INFUS..BTL IVC SCH (18:20)
[2019-02-06] MEDS ORDERED: Nitroglycerin 25 MG/250 ML INFUS..BTL IVC ONE (18:28)
[2019-02-06] MEDS: amLODIPine 5 MG TABLET PO SCH (18:46)
[2019-02-06] MEDS ORDERED: Melatonin 3 MG TABLET PO PRN (23:04)
[2019-02-07] MEDS ORDERED: Insulin Human Regular 10 UNIT in 0.9 % Sodium Chloride 10 ML IV ONE (06:34)
[2019-02-07] MEDS ORDERED: *HR* Dextrose 50 % in Water (Syg) 50 ML SYRINGE IVP ONE (06:36)
[2019-02-07] MEDS ORDERED: Calcium Gluconate 2,000 MG in 0.9 % Sodium Chloride 100 ML IVPB ONE (06:37)
[2019-02-07] MEDS ORDERED: Calcium Gluconate 1gm/50mL 1 GM/50 ML BAG IVPB ONE ×2 (07:00→08:00)
[2019-02-07] MEDS: Nitroglycerin 25 MG/250 ML INFUS..BTL IVC SCH (07:20)
[2019-02-07] MEDS: Lisinopril 20 MG TABLET PO SCH (08:28)
[2019-02-07] MEDS: amLODIPine 5 MG TABLET PO SCH (08:28)
[2019-02-07] MEDS: Aspirin Enteric Coated 81 MG Tablet PO SCH (08:28)
--- NOTE | 2019-02-07 08:37 | Internal Med Progress Note ---
<Rene Clifton F - Last Filed: 02/07/19 14:34> Hospitalist Progress Note - Encounter Date of Encounter: 02/07/19 Time of Encounter: 08:37 - Subjective Interval History: Patient was seen and examined at bedside. Patient was resting comfortably. No acute events overnight. Patient was not endorsing any chest pain, shortness of breath, palpitations. Denies any nausea, vomiting, fevers, chills. Denies any abdominal pain. - Exam Vitals: Temp Pulse Resp BP Pulse Ox 98.7 F 70 21 146/64 96 02/07/19 08:00 02/07/19 08:00 02/07/19 08:00 02/07/19 08:00 02/07/19 08:00 Exam: GEN: Well-appearing, NAD, conversant. HEAD: Normocephalic, atraumatic. EYES: PERRL, EOMI, anicteric. ENT: MMM. oropharynx without erythema or drainage. NECK: Supple. No LAD. No stiffness or restricted ROM. No tracheal deviation. HEART: Regular rate and regular rhythm, normal S1/S2, no m/r/g. LUNGS: CTAB, good air exchange bilaterally. No wheezing, rubs, or rhonchi. ABDO: Soft, nontender, nondistended with active bowel sounds. : No suprapubic tenderness or CVA tenderness. BACK: No obvious stepoffs or deformities. EXT: Without cyanosis, clubbing or edema. 2+ peripheral pulses. SKIN: Warm and dry without any rash. NEURO: Grossly nonfocal. Alert and oriented, moving all 4 extremities. CN not formally tested but appear grossly intact. PSYCH: Normal affect, no depressed or anxious mood. - Assessment and Plan (1) Complete heart block by electrocardiogram Current Visit: Yes Status: Acute Assessment and Plan: Patient initially presented for shortness of breath and cardiac workup. Increasing lower extremity edema and orthopnea. Upon arrival initial EKG confirmed to complete heart block. Troponin was 0.08. TSH normal. - Cardiology was consulted in the emergency department. - Cards recs to check TTE, avoid negative chronotropic agents, and temp vs. permanent pacing - Cards recs [facility] with no intervention warranted, final cath report pending - Hx of med noncompliance; on Coreg 6.25mg PO BID - EP was consulted, currently Vpacing at 70bpm - EP recs permanent pacemaker, patient is agreeable (2) Congestive heart failure Current Visit: Yes Status: Acute Assessment and Plan: Patient has a history of systolic heart failure. He is supposed to be on Coreg and lisinopril. Currently only takes lisinopril, but not regularly. He had troponin of 0.08. BNP over 1000. Gave IV lasix 40mg. On ASA 81 daily and lasix 20mg IV BID. Echo 02/07 showed LVEF of 55%. Mild aortic stenosis and tricuspid regurg. No estee dence of pulmonary HTN. - Fluid restrict, monitor I/Os and daily weights (3) Schizophrenia Current Visit: Yes Status: Acute Assessment and Plan: Currently not on any home medications. Patient denies any SI/HI. Denies any visual or auditory hallucinations. (4) Hypertension Current Visit: Yes Status: Acute Assessment and Plan: Noncompliant with all medications. Resume lisinopril by mouth. We will be cautious to not abruptly drop blood pressure. IV hydralazine when necessary. (5) DVT prophylaxis Current Visit: Yes Status: Acute Assessment and Plan: On heparin GTT. - Time Spent with Patient Total time spent is greater than 50% in coordination of care (as documented) at patient's floor/unit and/or counseling patient: less than 15 minutes Plan of Care Discussed with: patient Internal Medicine: Result - Labs CBC & Chem 7: 02/06/19 10:46 02/06/19 10:46 Labs: Short CBC 02/06/19 Range/Units 10:46 WBC 7.9 (4.3-11.1) K/mcL Hgb 12.9 (12.9-16.9) g/dL Hct 39.8 (37.5-50.1) % Plt Count 156 (140-400) K/mcL Neutrophils # 4.9 (1.6-8.9) K/mcL BMP 02/06/19 10:46 Sodium 141 Potassium 3.6 Chloride 105 Carbon Dioxide 24 BUN 21 Creatinine 1.09 Glucose 118 H Calcium 9.0 Cardiac Enzymes 02/06/19 Range/Units 10:46 Troponin I 0.08 H* (< 0.04) ng/mL - ABG Interpretation ABG results: PT/INR, D-dimer PT 11.7 Seconds (9.4-12.1) 02/06/19 12:25 - Impressions Impressions Chest X-Ray 02/06/19 10:18 IMPRESSION: The combination of cardiomegaly and mild interstitial pulmonary edema is suggestive of mild CHF. D/ / 02/06/2019 10:57:55 Jose L Payne MD / katy Interpreting Provider: Jose L Payne MD Consult Discharge Plan - Plan [facility]errals: [facility]Primary Care Provider[facility] - <Deon Benjamin - Last Filed: 02/07/19 15:30> Hospitalist Progress Note - Encounter Date of Encounter: 02/07/19 - Exam Vitals: Temp Pulse Resp BP Pulse Ox 98.7 F 70 20 152/55 96 02/07/19 08:00 02/07/19 15:00 02/07/19 15:00 02/07/19 15:00 02/07/19 15:00 - Assessment and Plan (1) Complete heart block by electrocardiogram Current Visit: Yes Status: Acute (2) Elevated troponin Current Visit: Yes Status: Acute (3) Congestive heart failure Current Visit: Yes Status: Acute (4) Schizophrenia Current Visit: Yes Status: Acute (5) Hypertension Current Visit: Yes Status: Acute (6) DVT prophylaxis Current Visit: Yes Status: Acute - Time Spent with Patient Total time spent is greater than 50% in coordination of care (as documented) at patient's floor/unit and/or counseling patient: My time is 35min Internal Medicine: Result - Labs CBC & Chem 7: 02/06/19 10:46 02/06/19 10:46 - ABG Interpretation ABG results: PT/INR, D-dimer PT 11.7 Seconds (9.4-12.1) 02/06/19 12:25 - Impressions Impressions Chest X-Ray 02/06/19 10:18 IMPRESSION: The combination of cardiomegaly and mild interstitial pulmonary edema is suggestive of mild CHF. D/ / 02/06/2019 10:57:55 Jose L Payne MD / katy Interpreting Provider: Jose L Payne MD Echocardiogram 02/07/19 09:00 Impressions: LVEF 55%. Normal LV chamber size and function. Assymetric septal hypertrophy. Max LVOT gradient is 15mmHg Normal right ventricular structure and function. Mild aortic stenosis.Peak aortic velocity and mean gradient are 2.41m/s and 14 mmHg, respectively. Mild tricuspid regurgitation. No evidence of pulmonary hypertension. Left Ventricular Wall Motion: Rest Echo Findings All wall segments showed normal motion. Findings: Study Quality * Technically sub-optimal due to poor echocardiographic windows. ECG Findings * Paced rhythm. Left Ventricle * LVEF 55%. * Normal LV chamber size and function. * Normal left ventricular diastolic function. * Assymetric septal hypertrophy. Max LVOT gradient is 15mmHg Right Ventricle * Normal right ventricular structure and function. Left Atrium * Normal left atrial size. Right Atrium * Normal right atrial size. Aortic Valve * Mild aortic stenosis.Peak aortic velocity and mean gradient are 2.41m/s and 14 mmHg, respectively. * * Trace aortic regurgitation. * Moderately sclerotic aortic valve leaflets. * Aortic valve not well visualized. Mitral Valve * Normal mitral valve structure. * No mitral regurgitation. * No mitral stenosis. Tricuspid Valve * Mild tricuspid regurgitation. * No evidence of pulmonary hypertension. * No tricuspid stenosis. * Tricuspid valve not well visualized. Pulmonic Valve * Pulmonic valve not well visualized. Aorta * Normally sized aortic root. Pericardium * There is a trivial pericardial effusion present. IVC * The IVC is dilated. Pulmonary Artery * Pulmonary artery not well visualized. - Attending Attestation I examined this patient and my medical decision-making was reviewed with the Resident Physician on 02/07/19. I agree with the documented findings, disposition and treatment plan as described except to the extent set forth below. Mr Gunter is currently admitted for complete heart block. He remains moderate to high risk due to potential for worsening clinical status. Mr Gunter is doing OK. No fever or chills. No CP at this time. BP still high - nitro drip running. Still with temp pacer. Exam: Alert. Comfortable. Mucus membranes dry. NC. EOMI. Neck supple. Heart reg. Lungs clear. Abd soft. No edema. No rash. Plan: Pacer per cardiology. BP management. consult. <Rene Clifton - Last Filed: 02/07/19 14:34> (2) Congestive heart failure Qualifiers: Heart failure type: systolic Heart failure chronicity: acute on chronic Qualified Code(s): I50.23 - Acute on chronic systolic (congestive) heart failure (3) Schizophrenia Qualifiers: Schizophrenia type: unspecified Qualified Code(s): F20.9 - Schizophrenia, unspecified (4) Hypertension Qualifiers: Hypertension type: essential hypertension Qualified Code(s): I10 - Essential (primary) hypertension <Deon Benjamin A - Last Filed: 02/07/19 15:30> (3) Congestive heart failure Qualifiers: Heart failure type: systolic Heart failure chronicity: acute on chronic Qualified Code(s): I50.23 - Acute on chronic systolic (congestive) heart failure (4) Schizophrenia Qualifiers: Schizophrenia type: unspecified Qualified Code(s): F20.9 - Schizophrenia, unspecified (5) Hypertension Qualifiers: Hypertension type: essential hypertension Qualified Code(s): I10 - Essential (primary) hypertension
[2019-02-07] MEDS ORDERED: Furosemide 20 MG/2 ML VIAL IVP SCH (09:00)
--- NOTE | 2019-02-07 09:00 | Event Note ---
Date of Encounter: 02/06/19 Time of Encounter: 17:00 - Cardiology Event Note Contacted by hospitalist - patient appears ill and diaphoretic. Notes HR in the 30s in CHB. Troponin mildly elevated at 0.08 from previous. Proceeded with [facility] temp pacer and C.
[2019-02-07] MEDS ORDERED: 0.9 % Sodium Chloride 500 ML ONE ×2 (09:38→16:17)
--- NOTE | 2019-02-07 10:25 | Electrophysiology Consult Note ---
<Rikki Marcial - Last Filed: 02/07/19 10:43> Date of Encounter: 02/07/19 Time of Encounter: 10:00 Assessment and Plan (1) Complete heart block by electrocardiogram Current Visit: Yes Status: Acute Per Cardiology: Noted to be in complete heart block. Status post temporal pacemaker yesterday. Currently V pacing at 70 with temporary pacer. Echo with Definity pending. Status post left heart catheterization with no intervention warranted per discussion with Dr. Nuñez. Final catheter report pending. Discussed and reviewed with Dr. Taiwo Burton, will await echo and anticipate pacemaker insertion later today. We will need to evaluate potential need for BiV. She appears clinically stable. Patient agreeable to pacemaker if clinically warranted. All questions answered. (2) Congestive heart failure Current Visit: Yes Status: Acute Per Cardiology: Possible history of cardiomyopathy-- no previous cardiac testing records noted at [facility]. Denies previous stenting or bypass surgery. Reports evaluated at one time for ICD, but apparently was told only needs medications. Supposed be taking Coreg 6.25 mg by mouth twice a day per pharmacy, however not an active filled prescription recently. On ACEI. Received IV Lasix. Strict I&O, daily weights, fluid restriction. Clinically appears improved, laying flat with no difficulty. Awaiting echo. We will continue to hold beta marcial for now until pacemaker inserted. Qualifiers: Heart failure type: systolic Heart failure chronicity: acute on chronic Qualified Code(s): I50.23 - Acute on chronic systolic (congestive) heart failure (3) Elevated troponin Current Visit: Yes Status: Acute Per Cardiology: Currently chest pain-free. Troponin noted to be 0.08 in setting of heart block and CHF. Cycle troponins. Suspect type II demand ischemia-- no intervention performed on catheterization. Discussion w patient/family: The assessment and plan as outlined above was discussed with the patient and/or family members who expressed understanding and agreement. All questions were answered. Thank you for involving us in the care of your patient. Please call with any questions. History of Present Illness Consult date: 02/07/19 Requesting physician: Luisa Pandey Consult reason: Eval for pacer Chief complaint: SOB History of present illness: Mr. Gunter is a 68 year old male with a relevant past medical history of HTN, HLD, COPD, possible cardiomyopathy, and schizophrenia. EP consult to evaluate for permanent pacemaker placement. Previous records reviewed: "Presented from [place] urgent care for shortness of breath and cardiac workup. He has a history of HFrEF, [place] two years ago, schizophrenia, and hypertension. He is poorly compliant with medications. He started having onset of shortness of breath for two months with lightheadedness that has progressed to shortness of breath. In the last few days, dyspnea has worsened and last night he experienced an episode of sharp chest pain. He again had the same issues today and so came in". Patient confirmed worsening SOB as above. Currently denies any chest pain. Reports short of breath has improved. Denies any palpitations. Denies any recent infectious process. Denies any active bleeding or blood loss. Past Med Surg Social Fam HX - Past Medical History Attestation: Yes The following information was validated with the patient. Source: patient, old records reviewed Medical history: CHF, COPD, hyperlipidemia, hypertension Psychiatric history: PTSD, schizophrenia - Social History Smoking Status: Never smoker Smokeless Tobacco Status: No Alcohol use: none Drug use: none Medications and Allergies Aspirin [Lo-Dose Aspirin EC] 81 mg PO DAILY 02/06/19 [History] Ibuprofen [Ibu] 600 mg PO Q6H PRN 02/06/19 [History] Lisinopril [Zestril] 20 mg PO DAILY 02/06/19 [History] Allergy/AdvReac Type Severity Reaction Status Date / Time lorazepam AdvReac See Verified 02/06/19 10:23 Comments All Systems Review: The remainder of the systems were reviewed and are negative - Cardiovascular Cardiovascular: as per HPI, chest pain at rest, dyspnea at rest, dyspnea on exertion Physical Examination Vital Signs, Last 4 Hours Temp Pulse Resp BP Pulse Ox 02/07/19 09:00 70 22 129/79 94 02/07/19 08:37 70 02/07/19 08:00 98.7 F 70 21 146/64 96 02/07/19 07:00 70 21 140/66 96 General: Conversant, No Apparent Distress HEENT: Atraumatic, Normocephaly, Mucus Membranes Moist Neck: No JVD, Normal carotid pulses Cardiac: Reg Rate and Rhythm, Normal S1 and S2, No Murmur Lungs: Other (Few scattered rhonchi throughout) Neuro: Alert and responsive, No focal deficits noted Abdomen: Soft, Non-Tender Skin: Other (Right groin site bandage D&I, temperature pacer in place) Musculoskeletal: No Chest Wall Tenderness Extremities: No Clubbing, No Cyanosis, No Edema, Normal Pulses Results 02/06/19 10:46 02/06/19 10:46 Lab Results Laboratory Tests 02/06/19 02/06/19 02/06/19 10:46 10:46 10:46 Hgb 12.9 Hct 39.8 INR 1.1 Creatinine 1.09 Est GFR (Non-Af Amer) > 60 Troponin I 0.08 H* B-Natriuretic Peptide TSH 2.889 02/06/19 10:46 Hgb Hct INR Creatinine Est GFR (Non-Af Amer) Troponin I B-Natriuretic Peptide 1017 H TSH ITS Impressions Chest X-Ray 02/06/19 10:18 IMPRESSION: The combination of cardiomegaly and mild interstitial pulmonary edema is suggestive of mild CHF. D/ / 02/06/2019 10:57:55 Jose L Payne MD / katy Interpreting Provider: Jose L Payne MD Active Medications Amlodipine Besylate (Norvasc) 5 mg PO DAILY [facility]; Protocol Stop: 08/08/19 17:01 Last Admin: 02/07/19 08:28 Dose: 5 mg Documented by: Aspirin (Aspirin Ec) 81 mg PO DAILY [facility] Stop: 08/09/19 09:01 Last Admin: 02/07/19 08:28 Dose: 81 mg Documented by: Furosemide (Lasix) 20 mg IVP BIDDIURETIC [facility] Stop: 08/09/19 09:01 Hydralazine HCl (Hydralazine) 20 mg IVP Q6HR PRN PRN Reason: SEE COMMENTS Stop: 08/08/19 14:54 Last Admin: 02/06/19 23:25 Dose: 20 mg Documented by: Dopamine HCl/Dextrose (Dopamine Premix 400mg/250ml) 400 mg in 250 mls @ 45.858 mls/hr IVC .Q5H28M [facility]; Protocol Stop: 08/08/19 11:01 Last Admin: 02/06/19 17:10 Dose: Not Given Documented by: Nitroglycerin (Nitroglycerin Premix 25 Mg/250 Ml) 25 mg in 250 mls @ 3 mls/hr IVC .Q24H [facility]; Protocol Stop: 08/08/19 18:31 Last Titration: 02/06/19 23:20 Dose: 40 mcg/min, 24 mls/hr Documented by: Lisinopril (Zestril) 20 mg PO DAILY [facility]; Protocol Stop: 08/09/19 09:01 Last Admin: 02/07/19 08:28 Dose: 20 mg Documented by: Melatonin (Melatonin) 3 mg PO HS PRN PRN Reason: Insomnia Stop: 08/08/19 23:05 Last Admin: 02/06/19 23:33 Dose: 3 mg Documented by: Nitroglycerin (Nitroglycerin) 0.4 mg SL Q5MIN PRN PRN Reason: Chest Pain Stop: 08/08/19 14:54 - Imaging and Cardiology Echo: pending Cardiac cath: report reviewed Consult Discharge Plan - Plan [facility]errals: [facility] [Primary Care Provider] - <Taiwo Burton - Last Filed: 02/10/19 11:42> Date of Encounter: 02/10/19 - Attending Attestation I have personally performed a face to face evaluation on this patient. I have reviewed and agree with the care plan. History and Exam by me shows: Complete heart block, normal LV function. Dual chamber pacer today. Assessment and Plan Discussion w patient/family: The assessment and plan as outlined above was discussed with the patient and/or family members who expressed understanding and agreement. All questions were answered. Thank you for involving us in the care of your patient. Please call with any questions. History of Present Illness History of present illness: Mr. Gunter is a 68 year old male All Systems Review: The remainder of the systems were reviewed and are negative Results 02/10/19 05:51 02/10/19 05:51 Lab Results 02/10/19 02/10/19 05:51 05:51 WBC 8.1 Hgb 12.5 L Hct 38.5 Plt Count 135 L Sodium 143 Potassium 3.5 Chloride 99 Carbon Dioxide 28 BUN 23 Creatinine 0.83 Glucose 104 Calcium 8.9
[2019-02-07] MEDS ORDERED: CeFAZolin Syr 2,000MG/20 ML 2,000 MG/20 ML SYRINGE IVPB ONE (11:07)
--- NOTE | 2019-02-07 11:07 | Event Note ---
Date of Encounter: 02/07/19 Time of Encounter: 11:00 - Cardiology Event Note ECHO: Impressions: LVEF 55%. Normal LV chamber size and function. Assymetric septal hypertrophy. Max LVOT gradient is 15mmHg Normal right ventricular structure and function. Mild aortic stenosis.Peak aortic velocity and mean gradient are 2.41m/s and 14 mmHg, respectively. Mild tricuspid regurgitation. No evidence of pulmonary hypertension. Left Ventricular Wall Motion: Rest Echo Findings All wall segments showed normal motion. Plan for pacer today. HAS-BLED Score - Score Elderly: Age>65 years Score: 1
--- NOTE | 2019-02-07 14:12 | Electrocardiograph Report ---
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
--- NOTE | 2019-02-07 14:13 | Electrocardiograph Report ---
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
--- NOTE | 2019-02-07 16:34 | Pre-Sedation Evaluation ---
Pre-sedation evaluation - Pre-sedation checklist Date of procedure: 02/06/19 Procedure: pacemaker Recent Vitals: Last Vital Signs Temp 98.7 F 02/07/19 08:00 Pulse 70 02/07/19 15:00 Resp 20 02/07/19 15:00 BP 152/55 02/07/19 15:00 Pulse Ox 96 02/07/19 15:00 H&P (including ROS) documented in medical record: Yes Previous reaction to sedatives/anesthetics: No Dietary Status: NPO after Midnight Airway Assessment: Patient can open mouth completely, TMJ function normal, Micrognathia (under-bite, receding chin) absent Dentition: No loose teeth or bridges Possible difficult airway: No ASA Classification *see protocol: CLASS II-Mild systemic disease Plan of Care: Pt appropriate candidate for procedure/moderate/conscious sedation, Risks/benefits of procedure/sedation discussed w/ patient/family
[2019-02-07] MEDS ORDERED: *HR* Midazolam HCl 2 MG/2 ML VIAL ONE (16:38)
[2019-02-07] MEDS ORDERED: 0.9 % Sodium Chloride 1,000 ML ONE ×2 (16:39→18:21)
[2019-02-07] MEDS ORDERED: *HR* FentaNYL (PF) 100 MCG/2 ML VIAL ONE (16:39)
[2019-02-07] MEDS ORDERED: Acetaminophen 325 MG TABLET PO PRN (17:42)
[2019-02-07] MEDS ORDERED: *HR* OxyCODONE Immed Rel 5 MG TABLET PO PRN (17:42)
[2019-02-07] MEDS: Furosemide 20 MG/2 ML VIAL IVP SCH (19:42)
[2019-02-08] MEDS: Nitroglycerin 25 MG/250 ML INFUS..BTL IVC SCH (01:18)
[2019-02-08 04:42] LABS: Basophils % 0.4 %; Eosinophils # 0.1 K/mcL (0.0-0.6); Eosinophils % 0.8 %; Hematocrit 36.7 % (37.5-50.1); Hemoglobin 11.7 g/dL (12.9-16.9); Immature Granulocytes % 0.6 % (0-4); Lymphocytes # 1.4 K/mcL (0.6-4.6); Lymphocytes % 14.2 %; Mean Corpuscular HGB Conc 31.9 g/dL (31.6-35.5); Mean Corpuscular Hemoglobin 28.1 pg (28.0-33.3); Mean Platelet Volume 11.4 fL (9.4-12.4); Monocytes % 10.5 %; Neutrophils # 7.3 K/mcL (1.6-8.9); Platelet Count 130 K/mcL (140-400); Red Blood Count 4.17 M/mcL (4.19-5.50); Red Cell Distribution Width 14.3 % (11.5-14.5); Segmented Neutrophils % 73.5 %; White Blood Count 9.9 K/mcL (4.3-11.1)
[2019-02-08 04:58] LABS: BUN/Creatinine Ratio 24 (6-26); Blood Urea Nitrogen 23 mg/dL (8-23); Calcium 8.3 mg/dL (8.6-10.3); Carbon Dioxide 26 mEq/L (23-29); Chloride 105 mEq/L (98-107); Glucose 124 mg/dL (70-105); Osmolality,Calculated 295 (280-300); Potassium 3.4 mEq/L (3.5-5.1); Sodium 140 mEq/L (136-145); eGFR For African Americans > 60 (> 60); eGFR For Non-African Americans > 60 (> 60)
[2019-02-08] MEDS ORDERED: Calcium Gluconate 1gm/50mL 1 GM/50 ML BAG IVPB ONE (07:23)
--- NOTE | 2019-02-08 07:25 | Internal Med Progress Note ---
<Deon Benjamin - Last Filed: 02/08/19 09:28> Hospitalist Progress Note - Encounter Date of Encounter: 02/08/19 - Exam Vitals: Temp Pulse Resp BP Pulse Ox 98.5 F 77 20 152/78 92 02/08/19 07:05 02/08/19 07:00 02/08/19 07:00 02/08/19 07:00 02/08/19 07:00 - Assessment and Plan (1) Complete heart block by electrocardiogram Current Visit: Yes Status: Acute (2) Elevated troponin Current Visit: Yes Status: Acute (3) Congestive heart failure Current Visit: Yes Status: Acute (4) Schizophrenia Current Visit: Yes Status: Acute (5) Hypertension Current Visit: Yes Status: Acute (6) DVT prophylaxis Current Visit: Yes Status: Acute (7) Hypokalemia Current Visit: Yes Status: Acute - Time Spent with Patient Total time spent is greater than 50% in coordination of care (as documented) at patient's floor/unit and/or counseling patient: Internal Medicine: Result - Labs CBC & Chem 7: 02/08/19 04:10 02/08/19 04:10 Labs: Short CBC 02/08/19 Range/Units 04:10 WBC 9.9 (4.3-11.1) K/mcL Hgb 11.7 L (12.9-16.9) g/dL Hct 36.7 L (37.5-50.1) % Plt Count 130 L (140-400) K/mcL Neutrophils # 7.3 (1.6-8.9) K/mcL BMP 02/08/19 04:10 Sodium 140 Potassium 3.4 L Chloride 105 Carbon Dioxide 26 BUN 23 Creatinine 0.97 Glucose 124 H Calcium 8.3 L - ABG Interpretation ABG results: PT/INR, D-dimer PT 11.7 Seconds (9.4-12.1) 02/06/19 12:25 - Impressions Impressions Echocardiogram 02/07/19 09:00 Impressions: LVEF 55%. Normal LV chamber size and function. Assymetric septal hypertrophy. Max LVOT gradient is 15mmHg Normal right ventricular structure and function. Mild aortic stenosis.Peak aortic velocity and mean gradient are 2.41m/s and 14 mmHg, respectively. Mild tricuspid regurgitation. No evidence of pulmonary hypertension. Left Ventricular Wall Motion: Rest Echo Findings All wall segments showed normal motion. Findings: Study Quality * Technically sub-optimal due to poor echocardiographic windows. ECG Findings * Paced rhythm. Left Ventricle * LVEF 55%. * Normal LV chamber size and function. * Normal left ventricular diastolic function. * Assymetric septal hypertrophy. Max LVOT gradient is 15mmHg Right Ventricle * Normal right ventricular structure and function. Left Atrium * Normal left atrial size. Right Atrium * Normal right atrial size. Aortic Valve * Mild aortic stenosis.Peak aortic velocity and mean gradient are 2.41m/s and 14 mmHg, respectively. * * Trace aortic regurgitation. * Moderately sclerotic aortic valve leaflets. * Aortic valve not well visualized. Mitral Valve * Normal mitral valve structure. * No mitral regurgitation. * No mitral stenosis. Tricuspid Valve * Mild tricuspid regurgitation. * No evidence of pulmonary hypertension. * No tricuspid stenosis. * Tricuspid valve not well visualized. Pulmonic Valve * Pulmonic valve not well visualized. Aorta * Normally sized aortic root. Pericardium * There is a trivial pericardial effusion present. IVC * The IVC is dilated. Pulmonary Artery * Pulmonary artery not well visualized. Chest X-Ray 02/07/19 17:42 IMPRESSION: 1. Interval placement of a left chest wall pacer. No complication including pneumothorax. 2. Mild interstitial edema. D/ / 02/07/2019 20:13:12 Nataly Mancilla MD / alex Interpreting Provider: Nataly Mancilla MD Chest X-Ray 02/08/19 06:00 IMPRESSION: Left chest wall cardiac device with 2 leads noted with tips projecting at the levels of the right atrium and right ventricle. Patchy left basilar airspace opacity favored to represent atelectasis. D/ / Uriel George / Uriel George Interpreting Provider: Uriel George Consult Discharge Plan - Plan [facility]errals: [facility] [Primary Care Provider[facility] - - Attending Attestation I examined this patient and my medical decision-making was reviewed with the Resident Physician on 02/08/19. I agree with the documented findings, disposition and treatment plan as described except to the extent set forth below. Mr Gunter is currently admitted for complete AV block. He is s/p pacer placement. He remains moderate to high risk due to potential for worsening clinical status. Mr Gunter is up in chair. He is feeling well today. No fever or chills. Weaning off nitro drip. Has seymour in still. Has not had much output from Lasix. Exam: Alert. Comfortable and pleasant. NC. EOMI. Mucus membranes dry. Heart reg. Lungs diminished. Abd soft. Edema present. Moves all extremities. No rash. Plan: Transfer out of ICU. D/C seymour. Wean off nitro to PO meds. D/C planning. Continue diuresis for volume overload. Replace potassium and check magnesium. Check HbgA1C. <Rene Clifton - Last Filed: 02/08/19 14:22> Hospitalist Progress Note - Encounter Date of Encounter: 02/08/19 Time of Encounter: 07:22 - Subjective Interval History: Patient was seen and examined at bedside. No acute events overnight. Patient endorsed no complaints today following permanent pacemaker placement yesterday. Has some soreness around the pacemaker site. He denies any chest pain, shortness of breath, palpitations. Denies nausea, vomiting, fevers, chills. - Exam Vitals: Temp Pulse Resp BP Pulse Ox 98.5 F 74 18 165/61 92 02/08/19 07:05 02/08/19 06:00 02/08/19 06:00 02/08/19 06:00 02/08/19 06:00 Exam: GEN: Well-appearing, NAD, conversant. HEAD: Normocephalic, atraumatic. EYES: PERRL, EOMI, anicteric. ENT: MMM. oropharynx without erythema or drainage. NECK: Supple. No LAD. No stiffness or restricted ROM. No tracheal deviation. HEART: Regular rate and regular rhythm, normal S1/S2, no m/r/g. Pacemaker p laced on left upper chest. No erythema or drainage. LUNGS: CTAB, good air exchange bilaterally. No wheezing, rubs, or rhonchi. ABDO: Soft, nontender, nondistended with active bowel sounds. : No suprapubic tenderness or CVA tenderness. BACK: No obvious stepoffs or deformities. EXT: Without cyanosis, clubbing or edema. 2+ peripheral pulses. SKIN: Warm and dry without any rash. NEURO: Grossly nonfocal. Alert and oriented, moving all 4 extremities. CN not formally tested but appear grossly intact. PSYCH: Normal affect, no depressed or anxious mood. - Assessment and Plan (1) Complete heart block by electrocardiogram Current Visit: Yes Status: Acute Assessment and Plan: Patient initially presented for shortness of breath and cardiac workup. Increasing lower extremity edema and orthopnea. Upon arrival initial EKG confirmed to complete heart block. Troponin was 0.08. TSH normal. Echo on 02/07 showed LVEF 55%, mild , TR - Cards recs avoid negative chronotropic agents - Cards recs [facility] with no intervention warranted - Hx of med noncompliance; on Coreg 6.25mg PO BID - Patient had permanent pacemaker placed on 02/08, no complications (2) Congestive heart failure Current Visit: Yes Status: Acute Assessment and Plan: Patient has a history of systolic heart failure. He is supposed to be on Coreg and lisinopril. Currently only takes lisinopril, but not regularly. He had troponin of 0.08. BNP over 1000. Gave IV lasix 40mg. On ASA 81 daily and lasix 20mg IV BID. Echo 02/07 showed LVEF of 55%. Mild aortic stenosis and tricuspid regurg. No evidence of pulmonary HTN. - Fluid restrict, monitor I/Os and daily weights (3) Schizophrenia Current Visit: Yes Status: Chronic Assessment and Plan: Currently not on any home medications. Patient denies any SI/HI. Denies any visual or auditory hallucinations. (4) Hypertension Current Visit: Yes Status: Chronic Assessment and Plan: Noncompliant with all medications. Resume lisinopril by mouth. We will be cautious to not abruptly drop blood pressure. IV hydralazine when necessary. - Amlodipine 5mg PO daily (5) Constipation Current Visit: Yes Status: Chronic Assessment and Plan: Patient has not had a bowel movement for 2 days. - On sennoside/docusate, bisacodyl (6) Hypokalemia Current Visit: Yes Status: Acute Assessment and Plan: Potassium was 3.4 this morning. - Repleted PO. DVT Prophylaxis: On heparin GTT. - Time Spent with Patient Total time spent is greater than 50% in coordination of care (as documented) at patient's floor/unit and/or counseling patient: less than 15 minutes Plan of Care Discussed with: patient Internal Medicine: Result - Labs CBC & Chem 7: 02/08/19 04:10 02/08/19 04:10 Labs: Short CBC 02/08/19 Range/Units 04:10 WBC 9.9 (4.3-11.1) K/mcL Hgb 11.7 L (12.9-16.9) g/dL Hct 36.7 L (37.5-50.1) % Plt Count 130 L (140-400) K/mcL Neutrophils # 7.3 (1.6-8.9) K/mcL BMP 02/08/19 04:10 Sodium 140 Potassium 3.4 L Chloride 105 Carbon Dioxide 26 BUN 23 Creatinine 0.97 Glucose 124 H Calcium 8.3 L - ABG Interpretation ABG results: PT/INR, D-dimer PT 11.7 Seconds (9.4-12.1) 02/06/19 12:25 - Impressions Impressions Echocardiogram 02/07/19 09:00 Impressions: LVEF 55%. Normal LV chamber size and function. Assymetric septal hypertrophy. Max LVOT gradient is 15mmHg Normal right ventricular structure and function. Mild aortic stenosis.Peak aortic velocity and mean gradient are 2.41m/s and 14 mmHg, respectively. Mild tricuspid regurgitation. No evidence of pulmonary hypertension. Left Ventricular Wall Motion: Rest Echo Findings All wall segments showed normal motion. Findings: Study Quality * Technically sub-optimal due to poor echocardiographic windows. ECG Findings * Paced rhythm. Left Ventricle * LVEF 55%. * Normal LV chamber size and function. * Normal left ventricular diastolic function. * Assymetric septal hypertrophy. Max LVOT gradient is 15mmHg Right Ventricle * Normal right ventricular structure and function. Left Atrium * Normal left atrial size. Right Atrium * Normal right atrial size. Aortic Valve * Mild aortic stenosis.Peak aortic velocity and mean gradient are 2.41m/s and 14 mmHg, respectively. * * Trace aortic regurgitation. * Moderately sclerotic aortic valve leaflets. * Aortic valve not well visualized. Mitral Valve * Normal mitral valve structure. * No mitral regurgitation. * No mitral stenosis. Tricuspid Valve * Mild tricuspid regurgitation. * No evidence of pulmonary hypertension. * No tricuspid stenosis. * Tricuspid valve not well visualized. Pulmonic Valve * Pulmonic valve not well visualized. Aorta * Normally sized aortic root. Pericardium * There is a trivial pericardial effusion present. IVC * The IVC is dilated. Pulmonary Artery * Pulmonary artery not well visualized. Chest X-Ray 02/07/19 17:42 IMPRESSION: 1. Interval placement of a left chest wall pacer. No complication including pneumothorax. 2. Mild interstitial edema. D/ / 02/07/2019 20:13:12 Nataly Mancilla MD / alex Interpreting Provider: Nataly Mancilla MD <Deon Benjamin - Last Filed: 02/08/19 09:28> (3) Congestive heart failure Qualifiers: Heart failure type: systolic Heart failure chronicity: acute on chronic Qualified Code(s): I50.23 - Acute on chronic systolic (congestive) heart failure (4) Schizophrenia Qualifiers: Schizophrenia type: unspecified Qualified Code(s): F20.9 - Schizophrenia, unspecified (5) Hypertension Qualifiers: Hypertension type: essential hypertension Qualified Code(s): I10 - Essential (primary) hypertension <Rene Clifton F - Last Filed: 02/08/19 14:22> (2) Congestive heart failure Qualifiers: Heart failure type: systolic Heart failure chronicity: acute on chronic Qualified Code(s): I50.23 - Acute on chronic systolic (congestive) heart failure (3) Schizophrenia Qualifiers: Schizophrenia type: unspecified Qualified Code(s): F20.9 - Schizophrenia, unspecified (4) Hypertension Qualifiers: Hypertension type: essential hypertension Qualified Code(s): I10 - Essential (primary) hypertension
[2019-02-08] MEDS: amLODIPine 5 MG TABLET PO SCH (07:38)
[2019-02-08] MEDS: Aspirin Enteric Coated 81 MG Tablet PO SCH (07:38)
[2019-02-08] MEDS: Lisinopril 20 MG TABLET PO SCH (07:39)
[2019-02-08] MEDS: Furosemide 20 MG/2 ML VIAL IVP SCH ×2 (07:39→18:24)
[2019-02-08] MEDS ORDERED: Sennosides/Docusate Sodium TABLET PO PRN ×2 (09:13→17:22)
--- NOTE | 2019-02-08 12:29 | Electrocardiograph Report ---
[place] [id number] Test Date: 2019-02-08 Pat Name: Santos Gunter Department: 109 Room: [facility] Gender: M Integration Analyst: MARGARET : 1950 Requested By: Lebron Schilling Order Number: [id number] Reading MD: Vielka Burton Measurements Intervals [place] Rate: 87 P: 49 W[place]: 195 QRS: -51 QRSD: 216 T: 112 QT: 489 QTc: 534 Interpretive Statements ELECTRONIC VENTRICULAR PACEMAKER ABNORMAL RHYTHM ECG Electronically Signed On 02-08-2019 12:28:05 EDT by Vielka Burton
--- NOTE | 2019-02-08 13:55 | Electrophysiology ProgressNote ---
Date of Encounter: 02/08/19 Time of Encounter: 10:00 Assessment and Plan (1) Complete heart block by electrocardiogram Current Visit: Yes Status: Acute Per Cardiology: Noted to be in complete heart during stay. S/p temporary pacemaker and then PPM placed yesterday with no complication. Post procedure day one CXR with no pnuemothorax. Post procedure day one device check shows normal functioning device. Out-pt f/u will be coordinated in the cardiology office for device check in one week and then one month. F/u with Dr. Taiwo Burton in 3 months. Discussed with nurse, patient is recommended to not drive for two weeks. Patient notes that he lives in his car. mortar worker consulted. Electrophysiology will sign off. ACTIVITY: Moderate activity for the next 7 days. No lifting more than 5 pounds (gallon of milk) for 4-6 weeks. Avoid lifting your arm on the same side as the device for 4 weeks. BATHING /SHOWERING: Do not remove the large bandage over the site for 2 days. Do not allow the device to get wet for 7-10 days. You may bathe/shower, but do not use soap and water on the site. When bathing, keep the site dry by covering with Saran wrap or a towel. WOUND CARE: The white steri-strips will start to peel away and come off after 14 days, or your doctor will remove them after [address] into or on top of the incision. Do not use cotton swabs. Do not use any antibiotic ointment or Vitamin E on the site. REMINDERS: You may use electrical devices, such as, microwaves, hair dryers, electric razors, electric blankets, etc. as long as they are in good condition and kept 6-8 inches away from the device. It is recommended to use cell phones on the opposite side of your device. Notify security personnel at the airport that you have a device before you go through airport security screening. When at places with security monitors, such as a grocery store, do not linger near these monitors. It is fine to walk past them in a normal manner. Refer to your owners manual for more specific directions. CARRY YOUR PACEMAKER/ICD CARD WITH YOU AT ALL TIMES Return to work as instructed per physician Resume driving as instructed per physician Keep all scheduled follow up appointments Resume medications as instructed Contact [facility] ( ) if: You develop excessive bleeding from insertion or wound site not controlled by applying pressure You develop a fever greater than 101 degrees Fahrenheit Your incision becomes reddened at or around the site Your incision develops yellowish or greenish drainage or development of white pimple-like bumps You experience excessive pain You develop swelling in your ankles You experience muscle switching You develop excessive hiccupping If you experience chest pain, shortness of breath, dizziness, or extreme tiredness, stop the activity and rest. Please notify [facility] office if you experience any of these symptoms and they are not relieved by rest please call 911! (2) Elevated troponin Current Visit: Yes Status: Acute Per Cardiology: Currently chest pain-free. Troponin elevation due to demand ischemia in setting of CHB. S/p LHC with no intervention. TTE shows normal EF. Mild aortic stenosis. Mild tricuspid regurgitation. (3) Hypertension Current Visit: Yes Status: Acute Initially on NTG gtt for elevated B/p and weaned off today. B/p 140-150 systolic. Increase norvasc as needed. Qualifiers: Hypertension type: essential hypertension Qualified Code(s): I10 - Essential (primary) hypertension Discussion w patient/family: The assessment and plan as outlined above was discussed with the patient and/or family members who expressed understanding and agreement. All questions were answered. Thank you for involving us in the care of your patient. Please call with any questions. Subjective Principal diagnosis: CHB Interval history: Pt sitting in his chair. States that he lives in his car and will need to drive. There is concern about following activity restrictions. health services director consulted. Objective Vital Signs, Last 4 Hours Temp Pulse Resp BP Pulse Ox 02/08/19 13:00 82 22 146/60 93 02/08/19 12:13 98.3 F 02/08/19 11:00 82 20 141/65 92 General: Conversant, No Apparent Distress, Other (Jumbled words at times) HEENT: Atraumatic, Normocephaly, Mucus Membranes Moist Neck: No JVD, Normal carotid pulses Cardiac: Reg Rate and Rhythm, Normal S1 and S2, No Murmur, Other (IZABEL dressing D/I) Lungs: Normal Breath Sounds, No Wheeze, Rales, Rhonchi Neuro: Alert and responsive, No focal deficits noted Abdomen: Soft, Non-Tender Skin: No rashes noted on visualized skin Musculoskeletal: No Chest Wall Tenderness Extremities: No Clubbing, No Cyanosis, No Edema, Normal Pulses Results 02/08/19 04:10 02/08/19 04:10 Lab Results 02/08/19 02/08/19 04:10 04:10 WBC 9.9 Hgb 11.7 L Hct 36.7 L Plt Count 130 L Sodium 140 Potassium 3.4 L Chloride 105 Carbon Dioxide 26 BUN 23 Creatinine 0.97 Glucose 124 H Calcium 8.3 L - Imaging and Cardiology Chest Xray: report reviewed Echo: report reviewed Cardiac cath: report reviewed - EKG Interpretation EKG results cardiology: personally reviewed Consult Discharge Plan - Plan [facility]errals: [facility] [Primary Care Provider] -
[2019-02-08] MEDS ORDERED: amLODIPine 5 MG TABLET PO ONE ×3 (14:03→18:00)
[2019-02-08] MEDS ORDERED: *HR* OxyCODONE Immed Rel 5 MG TABLET PO PRN (17:22)
[2019-02-08] MEDS ORDERED: Melatonin 3 MG TABLET PO PRN (17:22)
[2019-02-08] MEDS ORDERED: Nitroglycerin 25 MG/250 ML INFUS..BTL IVC SCH (17:22)
[2019-02-08] MEDS ORDERED: Nitroglycerin 0.4 MG TAB.SUBL SL PRN (17:22)
[2019-02-08] MEDS ORDERED: Acetaminophen 325 MG TABLET PO PRN (17:22)
[2019-02-09] MEDS: Lisinopril 20 MG TABLET PO SCH (08:50)
[2019-02-09] MEDS: Furosemide 20 MG/2 ML VIAL IVP SCH (08:50)
[2019-02-09] MEDS: amLODIPine 5 MG TABLET PO SCH (08:51)
[2019-02-09] MEDS: Aspirin Enteric Coated 81 MG Tablet PO SCH (08:51)
[2019-02-09] MEDS ORDERED: amLODIPine 5 MG TABLET PO SCH (09:00)
[2019-02-09 09:33] LABS: Estimated Average Glucose 134 mg/dl
[2019-02-09 09:41] LABS: BUN/Creatinine Ratio 28 (6-26); Blood Urea Nitrogen 26 mg/dL (8-23); Calcium 8.9 mg/dL (8.6-10.3); Carbon Dioxide 26 mEq/L (23-29); Chloride 103 mEq/L (98-107); Glucose 185 mg/dL (70-105); Magnesium 1.9 mg/dL (1.6-2.6); Osmolality,Calculated 296 (280-300); Potassium 3.4 mEq/L (3.5-5.1); Sodium 138 mEq/L (136-145); eGFR For African Americans > 60 (> 60); eGFR For Non-African Americans > 60 (> 60)
--- NOTE | 2019-02-09 14:05 | Internal Med Progress Note ---
Hospitalist Progress Note - Encounter Date of Encounter: 02/09/19 Time of Encounter: 14:03 - Subjective Interval History: Patient was seen and examined at bedside. No acute events overnight. However patient did have a systolic blood pressure over 200. Did not get PRN hydralazine. However patient denies having any symptoms including chest pain, shortness of breath, headache, vision changes, abdominal pain, nausea, vomiting, fevers, chills. Patient also has not had any heart palpitations. No issues with recent pacemaker placement. - Exam Vitals: Temp Pulse Resp BP Pulse Ox 97.6 F 73 17 155/71 96 02/09/19 10:58 02/09/19 10:58 02/09/19 10:58 02/09/19 10:58 02/09/19 10:58 Exam: GEN: Well-appearing, NAD, conversant. HEAD: Normocephalic, atraumatic. EYES: PERRL, EOMI, anicteric. ENT: MMM. oropharynx without erythema or drainage. NECK: Supple. No LAD. No stiffness or restricted ROM. No tracheal deviation. HEART: Regular rate and regular rhythm, normal S1/S2, no m/r/g. Pacemaker placed on left upper chest. No erythema or drainage. LUNGS: CTAB, good air exchange bilaterally. No wheezing, rubs, or rhonchi. ABDO: Soft, nontender, nondistended with active bowel sounds. : No suprapubic tenderness or CVA tenderness. BACK: No obvious stepoffs or deformities. EXT: Without cyanosis, clubbing or edema. 2+ peripheral pulses. SKIN: Warm and dry without any rash. NEURO: Grossly nonfocal. Alert and oriented, moving all 4 extremities. CN not formally tested but appear grossly intact. PSYCH: Normal affect, no depressed or anxious mood. - Assessment and Plan (1) Complete heart block by electrocardiogram Current Visit: Yes Status: Acute Assessment and Plan: Patient initially presented for shortness of breath and cardiac workup. Increasing lower extremity edema and orthopnea. Upon arrival initial EKG confirmed to complete heart block. Troponin was 0.08. TSH normal. Echo on 02/07 showed LVEF 55%, mild , TR - Cards recs avoid negative chronotropic agents - Cards recs LHC with no intervention warranted - Hx of med noncompliance; continued on Coreg 6.25mg PO BID - Patient had permanent pacemaker placed on 02/08, no complications - Follow up with Dr. Taiwo Burton in 3 months - Follow up device check in one week, then one month; recommended no driving for 2 weeks - Social work aware that patient lives in his car, which [place] the [place] (2) Congestive heart failure Current Visit: Yes Status: Acute Assessment and Plan: Patient has a history of systolic heart failure. He is supposed to be on Coreg and lisinopril. Currently only takes lisinopril, but not regularly. He had troponin of 0.08. BNP over 1000. Gave IV lasix 40mg. Cont ASA 81 daily and lasix 20mg IV BID. Echo 02/07 showed LVEF of 55%. Mild aortic stenosis and tricuspid regurg. No evidence of pulmonary HTN. - Fluid restrict, monitor I/Os and daily weights - Cont coreg 6.25 PO BID - Cont amlodipine 10 mg PO daily - Cont ASA 81 daily - Transitioned to lasix 40mg PO BID on 02/09 (3) Schizophrenia Current Visit: Yes Status: Chronic Assessment and Plan: Patient denies any SI/HI. Denies any visual or auditory hallucinations. Currently not on any home medications. (4) Hypertension Current Visit: Yes Status: Chronic Assessment and Plan: Noncompliant with all medications. Resume lisinopril by mouth. We will be cautious to not abruptly drop blood pressure. - IV hydralazine PRN - Amlodipine 5mg PO daily - Coreg 6.25 PO daily (5) Constipation Current Visit: Yes Status: Chronic Assessment and Plan: Bowel moment this morning. Resolved. - Cont sennosides/docusate, bisacodyl (6) Hypokalemia Current Visit: Yes Status: Acute Assessment and Plan: Potassium was 3.4 this morning. - Repleted PO. DVT Prophylaxis: On heparin GTT. - Time Spent with Patient Total time spent is greater than 50% in coordination of care (as documented) at patient's floor/unit and/or counseling patient: less than 15 minutes Plan of Care Discussed with: patient Internal Medicine: Result - Labs CBC & Chem 7: 02/08/19 04:10 02/09/19 09:07 Labs: BMP 02/09/19 09:07 Sodium 138 Potassium 3.4 L Chloride 103 Carbon Dioxide 26 BUN 26 H Creatinine 0.92 Glucose 185 H Calcium 8.9 - ABG Interpretation ABG results: PT/INR, D-dimer PT 11.7 Seconds (9.4-12.1) 02/06/19 12:25 Consult Discharge Plan - Plan Referrals: [facility] [Primary Care Provider] - (2) Congestive heart failure Qualifiers: Heart failure type: systolic Heart failure chronicity: acute on chronic Qualified Code(s): I50.23 - Acute on chronic systolic (congestive) heart failure (3) Schizophrenia Qualifiers: Schizophrenia type: unspecified Qualified Code(s): F20.9 - Schizophrenia, unspecified (4) Hypertension Qualifiers: Hypertension type: essential hypertension Qualified Code(s): I10 - Essential (primary) hypertension
[2019-02-09] MEDS ORDERED: amLODIPine 5 MG TABLET PO ONE (17:24)
[2019-02-09] MEDS: Furosemide 40 MG TABLET PO SCH (18:28)
[2019-02-10 06:34] LABS: Basophils % 0.5 %; Eosinophils # 0.6 K/mcL (0.0-0.6); Eosinophils % 7.9 %; Hematocrit 38.5 % (37.5-50.1); Hemoglobin 12.5 g/dL (12.9-16.9); Immature Granulocytes % 0.7 % (0-4); Lymphocytes # 1.6 K/mcL (0.6-4.6); Lymphocytes % 19.5 %; Mean Corpuscular HGB Conc 32.5 g/dL (31.6-35.5); Mean Corpuscular Hemoglobin 28.8 pg (28.0-33.3); Mean Corpuscular Volume 88.7 fL (83.0-100.0); Mean Platelet Volume 11.5 fL (9.4-12.4); Monocytes # 0.9 K/mcL (0.0-1.3); Monocytes % 11.5 %; Neutrophils # 4.8 K/mcL (1.6-8.9); Platelet Count 135 K/mcL (140-400); Red Blood Count 4.34 M/mcL (4.19-5.50); Red Cell Distribution Width 14.1 % (11.5-14.5); Segmented Neutrophils % 59.9 %; White Blood Count 8.1 K/mcL (4.3-11.1)
[2019-02-10 06:57] LABS: BUN/Creatinine Ratio 28 (6-26); Blood Urea Nitrogen 23 mg/dL (8-23); Calcium 8.9 mg/dL (8.6-10.3); Carbon Dioxide 28 mEq/L (23-29); Chloride 99 mEq/L (98-107); Glucose 104 mg/dL (70-105); Osmolality,Calculated 300 (280-300); Potassium 3.5 mEq/L (3.5-5.1); Sodium 143 mEq/L (136-145); eGFR For African Americans > 60 (> 60); eGFR For Non-African Americans > 60 (> 60)
[2019-02-10] MEDS: Lisinopril 20 MG TABLET PO SCH (08:02)
[2019-02-10] MEDS: Furosemide 40 MG TABLET PO SCH (08:02)
[2019-02-10] MEDS: Aspirin Enteric Coated 81 MG Tablet PO SCH (08:02)
[2019-02-10] MEDS: amLODIPine 5 MG TABLET PO SCH (08:02)
--- NOTE | 2019-02-10 11:28 | Internal Med Progress Note ---
Hospitalist Progress Note - Encounter Date of Encounter: 02/10/19 - Exam Vitals: Temp Pulse Resp BP Pulse Ox 97.8 F 73 12 184/77 96 02/10/19 07:32 02/10/19 07:32 02/10/19 07:32 02/10/19 07:32 02/10/19 07:32 - Time Spent with Patient Total time spent is greater than 50% in coordination of care (as documented) at patient's floor/unit and/or counseling patient: Internal Medicine: Result - Labs CBC & Chem 7: 02/10/19 05:51 02/10/19 05:51 Labs: Short CBC 02/10/19 Range/Units 05:51 WBC 8.1 (4.3-11.1) K/mcL Hgb 12.5 L (12.9-16.9) g/dL Hct 38.5 (37.5-50.1) % Plt Count 135 L (140-400) K/mcL Neutrophils # 4.8 (1.6-8.9) K/mcL BMP 02/10/19 05:51 Sodium 143 Potassium 3.5 Chloride 99 Carbon Dioxide 28 BUN 23 Creatinine 0.83 Glucose 104 Calcium 8.9 - ABG Interpretation ABG results: PT/INR, D-dimer PT 11.7 Seconds (9.4-12.1) 02/06/19 12:25 Consult Discharge Plan - Plan Referrals: [facility] [Primary Care Provider] -
[2019-02-10 12:58] VITALS: BP 157/75
--- NOTE | 2019-02-10 13:44 | Discharge Summary ---
- NOTES TO OUTPATIENT PROVIDER Notes to Outpatient Provider: EMS from transferred for the MD for shortness of breath. Alison was completed which showed complete heart block. Troponins were elevated, Cardiology was consulted and a pacemaker was placed without complication. Once patient was medically stable he was discharged with inst ructions to follow up with his PCP and production superintendent. Date of Encounter: 02/11/19 Time of Encounter: 13:00 - Discharge Diagnosis (1) Complete heart block by electrocardiogram Priority: Primary Status: Acute Assessment and Plan: Patient initially presented for shortness of breath and cardiac workup. Increasing lower extremity edema and orthopnea. Upon arrival initial EKG confirmed to complete heart block. Troponin was 0.08. TSH normal. Echo on 02/07 showed LVEF 55%, mild , TR - Patient had permanent pacemaker placed on 02/08, no complications Out-pt f/u will be coordinated in the cardiology office for device check in one week and then one month. F/u with Dr. Taiwo Burton in 3 months. (2) Congestive heart failure Priority: Secondary Status: Acute Assessment and Plan: Patient has a history of systolic heart failure. He is supposed to be on Coreg and lisinopril. Currently only takes lisinopril, but not regularly. He had troponin of 0.08. BNP over 1000. Gave IV lasix 40mg. Cont ASA 81 daily and lasix 20mg IV BID. Echo 02/07 showed LVEF of 55%. Mild aortic stenosis and tricuspid regurg. No evidence of pulmonary HTN. - Fluid restrict, monitor I/Os and daily weights - Cont coreg 6.25 PO BID - Cont amlodipine 10 mg PO daily - Cont ASA 81 daily - Transitioned to lasix 40mg PO BID on 02/09 Qualifiers: Heart failure type: systolic Heart failure chronicity: acute on chronic Qualified Code(s): I50.23 - Acute on chronic systolic (congestive) heart failure (3) Hypokalemia Priority: Secondary Status: Acute Assessment and Plan: Noncompliant with all medications. Resume lisinopril by mouth. We will be cautious to not abruptly drop blood pressure. - IV hydralazine PRN - Amlodipine 5mg PO daily - Coreg 6.25 PO daily (4) Constipation Priority: Secondary Status: Chronic Assessment and Plan: Resolved. - Cont sennosides/docusate, bisacodyl Qualifiers: Qualified Code(s): K59.00 - Constipation, unspecified (5) Hypertension Priority: Secondary Status: Chronic Assessment and Plan: Increased norvasc. Qualifiers: Hypertension type: essential hypertension Qualified Code(s): I10 - Essential (primary) hypertension (6) Schizophrenia Priority: Secondary Status: Chronic Assessment and Plan: Continue schizophrenic medications. Qualifiers: Schizophrenia type: unspecified Qualified Code(s): F20.9 - Schizophrenia, unspecified Hospital course: Mr. Gunter is a 68 year old male EMS from transferred for the MD for shortness of breath. EKG was completed which showed complete heart block. Troponins were elevated, Cardiology was consulted and a pacemaker was placed without complication. Once patient was medically stable he was discharged with instructions to follow up with his PCP and production superintendent. Discharge discussed with: patient - Time Spent with Patient Total time spent providing and/or coordinating discharge services: - Discharge Medications Prescriptions: New Compr.stocking,Thigh,Reg,Large [Compression Thigh Stocking] 1 each MC QDPC 30 Days #1 each Carvedilol [Coreg] 6.25 mg PO BIDWM 30 Days #60 tablet Potassium Chloride [K-Tab ER] 20 meq PO QDPC 30 Days #30 tablet.er Furosemide [Lasix] 40 mg PO BIDDIURETIC 30 Days #60 tablet Clotrimazole 1% CRM [Lotrimin 1%] 1 appl TP BID #1 tube amLODIPine [Norvasc] 10 mg PO DAILY 30 Days #30 tablet Continued Ibuprofen [Ibu] 600 mg PO Q6H PRN PRN Reason: Pain Aspirin [Lo-Dose Aspirin EC] 81 mg PO DAILY 30 Days #30 tablet. Lisinopril [Zestril] 20 mg PO DAILY 30 Days #30 tablet Home Medications: Ibuprofen [Ibu] 600 mg PO Q6H PRN 02/06/19 [History] Aspirin [Lo-Dose Aspirin EC] 81 mg PO DAILY 30 Days #30 tablet. 02/10/19 [Rx] Carvedilol [Coreg] 6.25 mg PO BIDWM 30 Days #60 tablet 02/10/19 [Rx] Clotrimazole 1% CRM [Lotrimin 1%] 1 appl TP BID #1 tube 02/10/19 [Rx] Compr.stocking,Thigh,Reg,Large [Compression Thigh Stocking] 1 each MC QDPC 30 Days #1 each 02/10/19 [Rx] Furosemide [Lasix] 40 mg PO BIDDIURETIC 30 Days #60 tablet 02/10/19 [Rx] Lisinopril [Zestril] 20 mg PO DAILY 30 Days #30 tablet 02/10/19 [Rx] Potassium Chloride [K-Tab ER] 20 meq PO QDPC 30 Days #30 tablet.er 02/10/19 [Rx] amLODIPine [Norvasc] 10 mg PO DAILY 30 Days #30 tablet 02/10/19 [Rx] Allergies/Adverse Reactions: Allergy/AdvReac Type Severity Reaction Status Date / Time lorazepam AdvReac See Verified 02/06/19 10:23 Comments Date of admission: 02/06/19 13:36 Primary care physician: [facility] Consults: 02/06/19 10:19 Consult to Cardiology [CONS] Stat Comment: Consulting Provider: Cardiology Alicia Reason for Consult: third degree heart block, new onset Time Notified: 10:30 Call Completed: Yes 02/07/19 10:31 Consult to Electrophysiology (EP) [CONS] Routine Consulting Provider: Electrophysiology Alicia Reason for Consult: complete heart block Call Completed: Yes 02/07/19 12:14 Consult to Rooming House Inspector [CONS] Routine Reason for SW Consult: patient is homeless, trouble getting meds, and is having a pacemaker placed today. Discharging clinician: Abby Sow Anticipated date of discharge: 02/10/19 - Constitutional Vitals: Temp Pulse Resp BP Pulse Ox 98.3 F 85 12 157/75 95 02/10/19 12:00 02/10/19 12:00 02/10/19 12:00 02/10/19 12:00 02/10/19 12:00 General appearance: Present: mild distress, A&O X 3, obese Exam: GEN: Well-appearing, NAD, conversant. HEAD: Normocephalic, atraumatic. EYES: PERRL, EOMI, anicteric. ENT: MMM. oropharynx without erythema or drainage. NECK: Supple. No LAD. No stiffness or restricted ROM. No tracheal deviation. HEART: Regular rate and regular rhythm, normal S1/S2, no m/r/g. Pacemaker placed on left upper chest. No erythema or drainage. LUNGS: CTAB, good air exchange bilaterally. No wheezing, rubs, or rhonchi. ABDO: Soft, nontender, nondistended with active bowel sounds. : No suprapubic tenderness or CVA tenderness. BACK: No obvious stepoffs or deformities. EXT: Without cyanosis, clubbing , +2 pitting edema. 2+ peripheral pulses. SKIN: Warm and dry without any rash. NEURO: Grossly nonfocal. Alert and oriented, moving all 4 extremities. CN not formally tested but appear grossly intact. PSYCH: Normal affect, no depressed or anxious mood. - Patient Status Disposition: Home, Self-Care Condition: Fair Functional capacity at discharge: independent ambulation Overall status at discharge: patient is back to baseline - Ambulatory Orders Ambulatory Orders: Basic Metabolic Panel [CHEM] Time Frame: 1 Week, Location: Determined By Patient - Discharge Instructions Instructions: Lisinopril (By mouth), Furosemide (By mouth), Betamethasone/Clotrimazole (On the skin), Potassium Chloride (By mouth), Aspirin (By mouth), Amlodipine (By mouth), Carvedilol (By mouth), Heart Failure (DC), Pacemaker (DC), Pacemaker (GEN), Heart Block (DC), Chronic Hypertension (DC), JOSIE Hose (DC) Follow Up With: [facility] [Primary Care Provider] - Additional Instructions: Please make sure to follow up with your primary care provider as soon as you can. Please make sure to follow up with her production superintendent per production superintendent rec ommendations. Please return to the hospital or seek medical attention if you experience the following symptoms increasing chest pain, fever, shortness of breath, or any new concerning symptoms. - Diet and Activity Activity: as per the cardiac rehab Diet: advance to your usual diet
== END 2019-02-10 15:21 | disposition home or self-care (01) | DRG 242 ==
LOC: EMEROOARM 10:12 → ICNU 13:36 → SUATTDRO 13:36 → ICNU 14:19 → 2NENU 02-08 15:49
PROVIDERS: ADMIT Student in an Organized Health Care Education/Training Program; ATTEND Internal Medicine